=== PATIENT | male | born 1960 | race Caucasian/White ===

== ENCOUNTER 2017-02-26 07:04 | Inpatient (IN) ==
[2017-02-26] MEDS ORDERED: NS 1,000 ML ONE (07:17)
[2017-02-26] MEDS ORDERED: CARDIZEM ONE (07:17)
--- NOTE | 2017-02-26 07:25 | EKG Report ---
Test Performed on : 02/26/2017 07:18:39 AM Test Reason : CHEST PAIN Blood Pressure : / mmHG Vent. Rate : 156 BPM Atrial Rate : 312 BPM P-R Int : 000 ms QRS Dur : 092 ms QT Int : 288 ms P-R-T Axes : -84 053 062 degrees QTc Int : 464 ms Atrial flutter. with 2:[address]. [address] and T wave abnormality Abnormal ECG When compared with ECG of 29-JUL-2016 16:11, Questionable change in QRS axis ST no longer depressed in Inferior leads ST no longer depressed in Anterior leads T wave inversion no longer evident in Inferior leads Unconfirmed Result
--- NOTE | 2017-02-26 07:28 | PROVIDER DOCUMENTATION ---
HPI-Cardiac General - General Chief Complaint: General Adult Stated Complaint: EDEMA/SORES/LESIONS Time Seen by Provider: 02/26/17 07:21 Source: patient Allergies/Adverse Reactions: Patient Allergies Allergy/AdvReac Type Severity Reaction Status Date / Time No Known Allergies Allergy Verified 03/14/13 13:54 Home Medications: Home Medication List Medication Instructions Recorded Confirmed Last Taken Type Aspirin EC 81 mg PO DAILY #90 tablet 07/31/16 02/26/17 Unknown Rx Aspirin EC 81 mg PO DAILY tablet 03/02/17 Unknown Rx Clindamycin [Cleocin] 300 mg PO TID #21 capsule 03/02/17 Unknown Rx Diltiazem [Cardizem] 60 mg PO Q8HR #90 tablet 03/02/17 Unknown Rx Lactobacillus Rhamnosus GG 1 each PO DAILY #1 each 03/02/17 Unknown Rx [Culturelle] Levofloxacin [Levaquin] 500 mg PO DAILY #7 tablet 03/02/17 Unknown Rx - History of Present Illness-Cardiac Nature of Presenting Problem: left leg swollen painful and red 3 or 4 days has hx of sores for years .now cannot bear weight Location: reports: other (palpitations x weeks 2or 3) Quality of Pain: reports: aching, sharp, stabbing Severity in ED: moderate Onset/Duration: 3 days ago Timing: still present, getting worse Context/Activities at Onset: reports: none Modifying Factors: worse with: exercise, movement Palpitation Quality: fast/pounding heart beat History of arrythmia: reports: A-Fib, other (aflutter) Recent use of:: reports: no stimulants Nitro Today/Relief: reports: no nitro taken today Aspirin Treatment Today: reports: 81 mg x 1 Prior Chest Pain/Cardiac Workup: reports: no prior chest pain Associated Symptoms: reports: edema, fever/chills, nausea, rash, shortness of breath, weakness. denies: vomiting Similar Symptoms Previously?: Yes Recently Seen Here or By Another Healthcare Provider: No Review of Systems - Adult - REVIEW OF SYSTEMS - ADULT Constitutional: reports: chills, fever, night sweats Eyes: reports: no symptoms reported Ears, Nose, Mouth & Throat: reports: no symptoms reported Cardiovascular: reports: edema, palpitations. denies: chest pain, syncope Respiratory: reports: chronic cough, shortness of breath Gastrointestinal: reports: diarrhea, nausea. denies: abdominal pain Genitourinary: reports: no symptoms reported Musculoskeletal: reports: bone pain, joint swelling Integumentary: reports: skin sores/ulcer Neurological: reports: numbness. denies: dizziness/vertigo Psychiatric: reports: no symptoms reported Endocrine: reports: increased thirst, polyuria Hematologic/Lymphatic: denies: blood clots, easy bruising, low blood count Allergic/Immunologic: reports: no symptoms reported All Other Systems: Reviewed and Negative Past History - Adult - PAST MEDICAL HISTORY-ADULT Review of Records: reports: Nursing Assessment Review, Medications Reviewed, Social history reviewed & non-contributory. Major Childhood Illnesses: reports: denies history Cardiovascular: reports: A-Fib, HTN. denies: CAD, CHF, [place], PAD Respiratory: reports: COPD Gastrointestinal: reports: denies history Genitourinary: reports: denies history Musculoskeletal: reports: denies history Neurological: reports: denies history Endocrine/Immune: reports: denies history - PRIOR SURGERIES/PROCEDURES Surgical/Procedure History: reports: none - FAMILY HISTORY Family History: diabetes - SOCIAL HISTORY Smoking: cigarettes Substance Use: none/never Alcohol Use Frequency: occasionally Physical Exam-General - PHYSICAL EXAM-ADULT Initial Vital Signs Reviewed: Yes - CONSTITUTIONAL General Appearance: mild distress - EYES Eyes: PERRL/EOMI - HEAD, EARS, NOSE, MOUTH & THROAT HENMT: normocephalic/atraumatic, moist mucous membranes, normal ENT inspection - NECK Neck: full range of motion, supple - RESPIRATORY Respiratory: rhonchi, wheezing, increased rate - CARDIOVASCULAR Cardiovascular: tachycardia - GASTROINTESTINAL (ABDOMEN) Abdominal Exam: soft - LYMPHATIC Lymphatic: no adenopathy, axilla node tender - MUSCULOSKELETAL Back Exam: normal inspection Extremity: erythema, swelling - SKIN Integumentary: normal color, normal turgor - NEUROLOGIC Neurologic: grossly normal - PSYCHIATRIC Psych/Mental Status: oriented x 3 Progress - PLAN OF CARE/RESULTS Progress/Plan/Lab Results: Orders Category Date Time Status Cardiac Monitoring DIRECTED Care 02/26/17 07:14 Completed Saline Loc NOW Care 02/26/17 07:14 Completed CHEST-2 VIEWS [RAD] Stat Exams 02/26/17 07:14 Completed BLOOD CULTURE [BLDCUL] Stat Lab 02/26/17 07:53 Completed CBC WITH ELECTRONIC DIFF [HEME] Stat Lab 02/26/17 07:25 Completed CK PROFILE [SP CHEM] Stat Lab 02/26/17 07:25 Completed COMPREHENSIVE METABOLIC PANEL [CHEM] Stat Lab 02/26/17 07:25 Completed LACTATE, PLASMA [CHEM] Stat Lab 02/26/17 07:25 Completed MAGNESIUM [CHEM] Stat Lab 02/26/17 07:25 Completed PRO B-NATRIURETIC PEPTIDE Stat Lab 02/26/17 07:25 Com[address]IME WITH INR PL [COAG] Stat Lab 02/26/17 07:[address] [COAG] Stat Lab 02/26/17 07:25 Completed TROPONIN T Stat Lab 02/26/17 07:25 Completed 0.9% Sodium Chloride Inj [Ns] 1,000 ml Med 02/26/17 07:17 Discontinued .ROUTE As Directed 0.9% Sodium Chloride Inj [Ns] 1,000 ml Med 02/26/17 07:37 Discontinued IV 999 mls/hr Diltiazem [Cardizem] Med 02/26/17 07:37 Discontinued 15 mg IV NOW ONE Diltiazem [Cardizem] Med 02/26/17 07:17 Discontinued 25 mg .ROUTE .STK-MED ONE EKG [EKG] Stat Ther 02/26/17 07:14 Draft Result Diagrams: 02/28/17 04:52 02/28/17 04:52 - EKG 1 Time of EKG reading by physician:: 07:18 EKG Read and Signed by:: Cong Baca EKG Interpretation (*Must complete 3 of following elements*): Abnormal Rate: 156 Rhythm: atrial flutter with 2:1 AV conduction [place]: normal QRS: normal GA Interval: normal ST Wave: non-specific ST changes Departure - Departure Date of Disposition Decision: 02/26/17 Time of Disposition Decision: 10:00 DIAGNOSIS: Atrial flutter with rapid ventricular response Disposition: ADMITTED INPATIENT 09 Certified Medical Emergency: Emergent Condition: Good - Critical Care Note This patient required my direct & personal management of CC.: No
[2017-02-26] MEDS ORDERED: CARDIZEM IV ONE (07:37)
[2017-02-26] MEDS ORDERED: NS 1,000 ML IV ONE ×2 (07:37→09:42)
[2017-02-26 07:51] LABS: BASO% 0.3 % (0.0-0.8); HEMATOCRIT 49.2 % (42.0-52.0); HEMOGLOBIN 16.4 g/dL (14.0-18.0); IMM GRAN# 0.17 X1000 (0.0-0.04); IMM GRAN% 0.8 % (0.0-0.5); INR 1.16 (0.86-1.15); LYMPH# 1.36 X1000 (1.2-3.4); LYMPH% 6.2 % (20.5-51.1); MANUAL DIFF NEEDED? NO; MCH 30.9 PG (27-31); MCHC 33.3 g/dL (33-37); MCV 92.8 FL (81-99); MONO# 1.59 X1000 (0.11-0.59); MONO% 7.3 % (1.7-9.3); NEUT% 85.4 % (42.2-75.2); PLT 195 X1000 (130-400); PROTIME 15.1 Seconds (12.1-15.5)
[2017-02-26 07:52] LABS: PTT PL 33.2 Seconds (22.6-43.9)
[2017-02-26 07:59] LABS: ALBUMIN 4.1 g/dL (3.5-5.0); CALCIUM 9.2 mg/dL (8.8-10.2); MAGNESIUM 2.4 mg/dL (1.5-2.7); POTASSIUM 3.5 mmol/L (3.5-5.1); TOTAL BILIRUBIN 0.7 mg/dL (0.20-1.00); TOTAL PROTEIN 8.2 g/dL (6.3-8.3)
--- NOTE | 2017-02-26 08:02 | Diag Imaging Result Doc PS360 ---
EXAM: CHEST-2 VIEWS HISTORY: CP TECHNIQUE: 07/29/2016 COMPARISON: None. FINDINGS: The lungs are well expanded. The heart is not enlarged. The vessels are not distended. There are no infiltrates. No pleural effusions. IMPRESSION: No acute abnormality. Electronically signed by Jabier Marin 02/26/2017 7:59 AM
[2017-02-26] MEDS ORDERED: ZOFRAN IV PRN (09:42)
[2017-02-26] MEDS ORDERED: VANCOMYCIN IV PER PHARMACY MISC SCH (09:42)
[2017-02-26] MEDS ORDERED: LOVENOX SUBQ SCH (09:42)
[2017-02-26] MEDS ORDERED: CARDIZEM PO SCH (10:30)
[2017-02-26] MEDS: ASPIRIN EC PO SCH (10:39)
[2017-02-26] MEDS: ZOSYN 3.375 GM/NS 3.375 GM/50 ML IVPB IV SCH ×3 (10:39→21:28)
[2017-02-26] MEDS: NORCO-5 PO PRN ×2 (10:51→16:35)
[2017-02-26] MEDS ORDERED: VANCOMYCIN 1,800 MG in NS 250 ML IV ONE (11:00)
[2017-02-26] MEDS: CARDIZEM 100 MG/NS 100 MG/100 ML IVPB IV SCH (13:13)
--- NOTE | 2017-02-26 13:36 | HISTORY AND PHYSICAL ---
PRIMARY CARE PHYSICIAN: None. LOGGER ALL ROUND: Dr. Magnus Loza. CHIEF COMPLAINT: Left leg wound. HISTORY OF PRESENT ILLNESS: Mr. Tripp is a 56-year-old male who presented to the emergency room wanting to be evaluated for wound to his left leg. On arrival he also was found to be in atrial fibrillation and flutter with rapid ventricular response. He does have a history of this but due to financial restraints has not been able to take his Cardizem and has only been on aspirin as far as chronic anticoagulation. He denies any other symptoms other than and concern over his left leg. He reports that his left leg has had these sores to his legs for the last 4 years but over the last 3-4 days has become more worse and appears to be infected with redness and swelling and mild amount of drainage from wound to his left posterior ankle. He reports some chills and low-grade fever. He denies any additional symptoms. Denies chest pain. He will be admitted for further evaluation and treatment. We will also get a social service consult to try to obtain his medications to be more affordable that he can have compliance on discharge. PAST MEDICAL HISTORY: 1. High blood pressure. 2. Atrial fibrillation. 3. Chronic right shoulder pain. PAST SURGICAL HISTORY: None. ALLERGIES: No known drug allergies. MEDICATIONS: Aspirin 81 mg p.o. daily. Cardizem CD 240 mg daily previously before discontinuation due to affordability. SOCIAL HISTORY: The patient lives with his . He reports smoking a pack and half a day and has done so for about 14 in 15 years. He also admits to drinking 2 beers a day over the last 15 years and has a history of cocaine use and reports he quit about 8 years ago. FAMILY HISTORY: Reviewed and noncontributory. REVIEW OF THE SYSTEM: Ten point review of systems negative other than previously stated in HPI. LABORATORIES AND DIAGNOSTICS: CBC: White count 21.88, hemoglobin and hematocrit 16.4, 49.2, platelets 195,000. PT 15.1, INR 1.16, PTT 33.8. BMP: Sodium 133, potassium 3.5, chloride 95, CO2 25, BUN 20, creatinine 1.3, glucose 172. LFTs within normal limits. Initial cardiac enzymes negative. ProBNP 257. Chest x-ray no acute abnormality. PHYSICAL EXAMINATION: VITAL SIGNS: Temperature 98.5 degrees, pulse 113, respirations 23, blood pressure 113/77, O2 saturation 97% on 2 L per nasal cannula. HEENT: Normocephalic, atraumatic. Mucous membranes moist. NECK: Supple. No JVD. CHEST: Bilateral breath sounds clear. No accessory muscle use noted. Respirations unlabored. CARDIOVASCULAR: Irregular rhythm. Tachycardic rate. ABDOMEN: Abdomen is soft, nontender, nondistended. Positive bowel sounds. EXTREMITIES: Left lower extremity with multiple sores WITH mild surrounding erythema. There is an ulceration to the left posterior lower leg that is more moderate erythema. No fluctuance or abscess noted. Does have a mild amount of drainage. NEUROLOGIC: Patient is alert and oriented x4. No neurological deficits noted. ASSESSMENT AND PLAN: 1. Atrial flutter, atrial fibrillation. Will place back on Cardizem and anticoagulation. Will also speak with social welfare research worker to check about the status of medications to ensure compliance on discharge. Also we will check a TSH and a mag just also to find another etiology regarding his atrial flutter, atrial fibrillation as well as cardiac enzymes. 2. Cellulitis left lower leg. Will treat with vancomycin and Zosyn and continue to follow his white count. We will get a wound culture as well. 3. Acute kidney injury. We will hydrate. He is slightly hyponatremic and with his alcohol history we will go ahead and treat with IV fluids. 4. High blood pressure. We will continue to follow and treat accordingly. 5. Hyperglycemia. We will check hemoglobin A1c in regards to this. 6. Nicotine dependence. Counseled on smoking cessation. Further orders pending physician evaluation. Dictated by ERICK Yancey for Suresh Lopez MD cc: ERICK Yancey MD
[2017-02-26] MEDS: MORPHINE IV PRN (21:27)
[2017-02-26] MEDS: VANCOMYCIN 1,300 MG in NS 250 ML IV SCH (22:28)
[2017-02-27] MEDS: MORPHINE IV PRN (01:11)
[2017-02-27] MEDS ORDERED: TYLENOL PO ONE (01:16)
[2017-02-27] MEDS: CARDIZEM 100 MG/NS 100 MG/100 ML IVPB IV SCH (02:14)
[2017-02-27] MEDS: ZOSYN 3.375 GM/NS 3.375 GM/50 ML IVPB IV SCH ×4 (03:43→22:02)
[2017-02-27 06:25] LABS: MANUAL DIFF NEEDED? NO
[2017-02-27 06:41] LABS: HEMOGLOBIN A1C 5.9 % (4.8-6.0)
[2017-02-27 06:43] LABS: BASO% 0.3 % (0.0-0.8); EOS# 0.19 X1000 (0.0-0.7); EOS% 1.3 % (0.0-10.0); HEMATOCRIT 41.2 % (42.0-52.0); HEMOGLOBIN 13.4 g/dL (14.0-18.0); IMM GRAN# 0.07 X1000 (0.0-0.04); IMM GRAN% 0.5 % (0.0-0.5); LYMPH# 1.17 X1000 (1.2-3.4); LYMPH% 8.3 % (20.5-51.1); MCH 30.7 PG (27-31); MCHC 32.5 g/dL (33-37); MCV 94.5 FL (81-99); MONO# 1.12 X1000 (0.11-0.59); MONO% 7.9 % (1.7-9.3); MPV 12.2 FL (7.4-10.4); NEUT% 81.7 % (42.2-75.2); PLT 165 X1000 (130-400); RBC 4.36 XMIL (4.7-6.1)
[2017-02-27 07:01] LABS: AGAP 14; BUN 19 mg/dL (8-22); CALCIUM 8.5 mg/dL (8.8-10.2); CHLORIDE 102 mmol/L (98-107); COSMO 278; MAGNESIUM 2.4 mg/dL (1.5-2.7); POTASSIUM 3.8 mmol/L (3.5-5.1); SODIUM 138 mmol/L (136-145); TCO2 22 mmol/L (25-35)
--- NOTE | 2017-02-27 08:34 | PROGRESS NOTE ---
DATE: 02/27/2017 SUBJECTIVE: This patient feels much better. He is still complaining of left lower extremity pain secondary to cellulitis but compared with the admission, is better. He denies nausea, vomiting. No diarrhea, no constipation. No chest pain. No shortness of breath. Since this patient is in the ICU with atrial flutter and diltiazem drip, cardiology department has been consulted. Pending recommendations. OBJECTIVE: Vital Signs: Temperature 98.3 degrees, pulse 86, respiratory rate 21, blood pressure 101/60, oxygen saturation 97% on 2 L of nasal cannula. HEENT: Head normocephalic. No trauma. PERRLA. Neck: Supple. No JVD. No masses. Central trachea. Chest: Clear to auscultation. No wheezing. No rales. Cardiovascular: Irregular rate and rhythm. Abdomen: Soft, nontender, nondistended. No hepatosplenomegaly. Extremities: Left lower extremity with multiple sores with surrounding erythema. There is an ulceration to the left posterior lower leg that is more moderate, that had more clear erythema. I do not think there is an abscess. Pulses are present. Neurological Examination: The patient is alert and oriented x3. No focal neurological deficits. Laboratory: WBC 14.1, hemoglobin 13.4, hematocrit 41.2, platelets 165,000. Sodium 138, potassium 3.8, chloride 102, bicarbonate 22, BUN 19, creatinine 0.9, glucose 94, calcium 8.5, magnesium 2.4. TSH 1.5. Troponins negative x3. ASSESSMENT AND PLAN: 1. Atrial flutter. This patient is on a diltiazem drip and also anticoagulation. Cardiology department has been consulted. This patient is not complaining of shortness of breath or chest pain. We will continue to monitor. 2. Cellulitis, left lower leg. Continue with vancomycin and Zosyn. WBC is getting better. We will continue to monitor. 3. Acute kidney injury, resolved. 4. Hypertension. We will continue to follow and treat accordingly. 5. Hyperglycemia. We checked his hemoglobin A1c and it is 5.9. Today's glucose is normal. 6. Nicotine dependence. This patient has been highly advised against tobacco abuse. I will continue with daily cessation education. CRITICAL CARE TIME: 35 minutes. cc: Suresh Lopez MD
[2017-02-27] MEDS: ASPIRIN EC PO SCH (08:35)
[2017-02-27] MEDS: LOVENOX SUBQ SCH ×2 (08:35→20:05)
[2017-02-27] MEDS: NORCO-5 PO PRN ×3 (08:36→22:30)
[2017-02-27] MEDS ORDERED: CARDIZEM CD PO SCH (09:00)
[2017-02-27] MEDS: VANCOMYCIN 1,300 MG in NS 250 ML IV SCH ×2 (11:25→22:02)
[2017-02-27] MEDS: CARDIZEM PO SCH ×2 (13:34→20:05)
--- NOTE | 2017-02-27 18:50 | CONSULTATION ---
DATE OF CONSULTATION: 02/27/2017 IMPRESSION: 1. Atrial flutter recurrent and persistent. Patient asymptomatic from a cardiovascular standpoint. 2. Hypertension. 3. Patient currently admitted for left lower extremity cellulitis. 4. Chronic cigarette use. 5. Medical noncompliance. RECOMMENDATIONS: 1. Transition to oral Cardizem. 2. Although patient's CHADS2-VASc score is 1, anticoagulation is problematic given patient's poor medical compliance and lack of resources. The patient was advised that we could start anticoagulation and try and obtain Xarelto or Eliquis through the company's assistance programs. Is not clear whether he will follow up in our office due to his lack of insurance. The patient also advised that ablation would likely be very beneficial but he has limited resources to pursue this. Therefore would utilize anti-platelet therapy with aspirin daily. 3. Repeat echocardiography. HISTORY: This 56-year-old white male with past history of atrial flutter, hypertension, chronic cigarette use and medical noncompliance was admitted to the emergency room for management of left lower extremity cellulitis. He has had left lower extremity swelling and erythema with pain for several days. He was found to be in atrial flutter with increased ventricular rate response and was started on intravenous Cardizem for rate control. Cardiology is consulted. The patient has history of atrial flutter dating back at least 2 years. He recalls having to go to [place] for possible cardioversion and then on arrival for this he was found to be back in sinus rhythm. However since then he has had recurrence of atrial flutter and was hospitalized in [place] in July 2016 with atrial flutter. He was seen by Dr. Loza and was treated with oral Cardizem and aspirin. He has not followed up from a cardiology standpoint and stopped taking his diltiazem for financial reasons. He has not any chest pain. He has some mild exertional dyspnea on a chronic basis. PAST MEDICAL HISTORY: 1. Hypertension. 2. Recurrent and persistent atrial flutter. PAST SURGICAL HISTORY: None. ALLERGIES: Has no known drug allergies. MEDICATIONS: Prior to admission as listed. It is noteworthy is not taking diltiazem previously prescribed for rate control. SOCIAL HISTORY: He is and lives with his . 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 He does not have any health insurance through his work. He smokes a pack and half cigarettes per day. He drinks 1 or 2 beers daily. FAMILY HISTORY: Negative for premature coronary disease. REVIEW OF SYSTEMS: Pulmonary: Negative/noncontributory beyond history present illness. Gastrointestinal: Negative. Constitutional: Negative. Remainder review of systems negative/noncontributory beyond history present illness. PHYSICAL EXAMINATION: General: Reveals an overweight middle-aged male in no distress. Vital Signs: As recorded are stable. HEENT: Extraocular movements intact. Mucous membranes are moist. Dentition is in poor repair. Neck: Supple without jugular venous distention. There are no carotid bruits. Chest: Clear to auscultation. Cardiac Exam: Reveals a regular rate and rhythm without appreciable murmur or gallop. Abdomen: Soft, nontender. Extremities: Demonstrate mild edema left lower extremity with erythema consistent with cellulitis. There are several excoriations on both lower extremities with scabs. Neurologic Exam: Reveals him to be alert and fully oriented. Speech is fluent. Moves all 4 extremities equally well. DATA: Twelve lead EKG demonstrates atrial flutter with 2:1 AV conduction and nonspecific ST and T- wave abnormality. cc: Benny Last MD
--- NOTE | 2017-02-27 21:29 | ECHO REPORT ---
ORDER DATE: 02/27/2017 MEASUREMENTS: Left ventricular end-diastolic diameter 4.7, systolic diameter 3.4, septal thickness 1.1, posterior wall thickness 1.1, left atrium 4.3, aortic root 3.0. SUMMARY: 1. Adequate quality study. 2. Aortic valve is trileaflet. There is mild sclerosis at the tip of the noncoronary cusp. Aortic valve opening is normal. Peak gradient across aortic valve is less than 10 mmHg. Mitral, tricuspid, and pulmonic valves are without structural abnormality with trace mitral regurgitation and mild tricuspid regurgitation. Estimated systolic PA pressure by Doppler is 35 mmHg. The aortic root is normal size. 3. Normal left ventricular dimensions demonstrated. Estimated left ejection fraction appears to be at least 60%. No regional wall motion abnormalities are demonstrated. Left atrium and right atrium are mildly enlarged. Right ventricle is normal in size with normal right ventricular systolic function. 4. No pericardial effusion. 5. Appearance of inferior vena cava suggests normal central venous pressure. 6. Intravenous agitated saline contrast study performed reveals no evidence of interatrial shunting. 7. Appearance of inferior vena cava suggests normal central venous pressure. cc: Benny Last MD
[2017-02-28] MEDS: ZOSYN 3.375 GM/NS 3.375 GM/50 ML IVPB IV SCH ×3 (04:19→16:48)
[2017-02-28] MEDS: CARDIZEM PO SCH ×3 (04:19→20:53)
[2017-02-28 06:58] LABS: BASO% 0.5 % (0.0-0.8); EOS# 0.32 X1000 (0.0-0.7); EOS% 3.3 % (0.0-10.0); HEMATOCRIT 40.5 % (42.0-52.0); HEMOGLOBIN 13.1 g/dL (14.0-18.0); IMM GRAN# 0.04 X1000 (0.0-0.04); IMM GRAN% 0.4 % (0.0-0.5); LYMPH# 1.47 X1000 (1.2-3.4); MANUAL DIFF NEEDED? YES; MCH 30.4 PG (27-31); MCHC 32.3 g/dL (33-37); MONO# 0.74 X1000 (0.11-0.59); MONO% 7.5 % (1.7-9.3); NEUT% 73.3 % (42.2-75.2); PLT 197 X1000 (130-400); RBC 4.31 XMIL (4.7-6.1)
[2017-02-28 07:50] LABS: AGAP 13; BUN 17 mg/dL (8-22); CALCIUM 8.5 mg/dL (8.8-10.2); CHLORIDE 102 mmol/L (98-107); COSMO 275; POTASSIUM 3.7 mmol/L (3.5-5.1); SODIUM 137 mmol/L (136-145); TCO2 22 mmol/L (25-35)
[2017-02-28] MEDS: LOVENOX SUBQ SCH ×2 (08:06→19:19)
[2017-02-28] MEDS: ASPIRIN EC PO SCH (08:06)
[2017-02-28] MEDS: NORCO-5 PO PRN ×2 (08:17→16:58)
[2017-02-28 08:31] LABS: EOS 5 % (1-10); LYMPHS 9 % (21-51); MONO 3 % (1-9)
--- NOTE | 2017-02-28 10:49 | EKG Report ---
Test Performed on : 02/28/2017 10:39:05 AM Test Reason : Chest Pain Blood Pressure : / mmHG Vent. Rate : 113 BPM Atrial Rate : 315 BPM P-R Int : 000 ms QRS Dur : 094 ms QT Int : 318 ms P-R-T Axes : 000 056 053 degrees QTc Int : 436 ms Atrial flutter. with variable AV block. ST elevation, consider inferior injury or acute infarct ACUTE AR / STEMI Abnormal ECG When compared with ECG of 26-FEB-2017 07:18, (Unconfirmed) ST elevation now present in Inferior leads ST no longer depressed in Lateral leads Unconfirmed Result
[2017-02-28] MEDS ORDERED: VANCOMYCIN 1,300 MG in NS 250 ML IV SCH (11:00)
[2017-02-28] MEDS ORDERED: TORADOL IV ONE ×2 (11:04→11:15)
--- NOTE | 2017-02-28 11:50 | PROGRESS NOTE ---
DATE: 02/28/2017 SUBJECTIVE: The patient states that he is feeling better overall. Left lower extremity pain is still present but it has decreased. The patient did have an episode of chest pain that was low midsternal to epigastric. It was present on inspiration only with no accompanying symptoms. OBJECTIVE: Vital Signs: Blood pressure is 114/76, with a heart rate of 105, respirations are 20, temperature is 98.9 degrees, with room air saturations of 98-99. Cardiovascular: Irregularly irregular rate and rhythm. S1 and S2 are appreciated. Pulmonary: Breath sounds are clear with no increased work of breathing noted. Gastrointestinal: Abdomen is soft, nontender, nondistended. Bowel sounds in all 4 quadrants. Extremities: Left lower extremity has multiple sores with surrounding erythema but the patient states that this is much better than yesterday. Pulses are palpable x4. Neurologic: He is alert and oriented x3. Labs: WBC is 9.8, with a hemoglobin of 13.1, hematocrit 40.5, and platelets of 197,000. Sodium is 137, potassium 3.7, BUN 17, creatinine 0.7, with a glucose of 83. His troponins were negative on multiple occasions. ASSESSMENT AND PLAN: 1. Atrial flutter. Rate remains 90-105. Patient does not complain of shortness of breath, paroxysmal nocturnal dyspnea, or orthopnea. We will continue with oral Cardizem and follow along with cardiology. 2. Chest pain. This is more atypical in nature. This is at the lower sternum to epigastric area. It is present on deep breathing, movement, and coughing. When the patient is sitting still and not breathing, the pain does subside. He denies chest pressure or shortness of breath. I did discuss this with Dr. Webster who recommends treating the pain medically. We will give a 1 time dose of Toradol and see what the effect is. We will also get a troponin. 3. Cellulitis, left lower leg. We will continue vancomycin and Zosyn. 4. Acute kidney injury, resolved. 5. Hypertension. We are going to continue his treatment regimen. 6. Hyperglycemia. Today's glucose is normal. 7. Nicotine dependence. Aware. Dictated by ERICK Schultz for Jese Rebollar MD cc: Jessica J. ERICK Mota MD
[2017-02-28] MEDS: VANCOMYCIN 1,600 MG in NS 250 ML IV SCH ×2 (12:12→23:05)
[2017-02-28] MEDS ORDERED: TORADOL IV SCH (18:00)
[2017-02-28] MEDS: LEVAQUIN PO SCH (18:19)
[2017-02-28] MEDS: TORADOL IV SCH ×2 (18:19→23:04)
[2017-03-01] MEDS: CARDIZEM PO SCH ×3 (04:08→20:34)
[2017-03-01] MEDS: TORADOL IV SCH ×2 (05:06→12:19)
[2017-03-01] MEDS: LOVENOX SUBQ SCH ×2 (08:23→19:16)
[2017-03-01] MEDS: LEVAQUIN PO SCH (08:29)
[2017-03-01] MEDS: CLEOCIN PO SCH ×3 (08:29→16:54)
[2017-03-01] MEDS: NORCO-5 PO PRN ×4 (08:30→21:41)
[2017-03-01] MEDS: ASPIRIN EC PO SCH (08:30)
--- NOTE | 2017-03-01 10:51 | PROGRESS NOTE ---
DATE: 03/01/2017 SUBJECTIVE: The patient without any complaints. Does note the last time he had episode of heart fluttering, but it went away pretty quickly. Currently states that he is feeling better. He had some chest pain yesterday that was more so chest wall pain, was easily relieved with Toradol and thus the chest pain is gone. States the swelling in his left lower extremity is much improved and the redness is much improved. OBJECTIVE: Vital Signs: On physical, temp 98, pulse 104, respiratory rate 18, BP 120/79, satting 97% on room air. General: Patient is awake, alert. He is currently in no respiratory distress, pleasant to talk with. Neck: Supple. CV: Regular rate. No appreciable murmurs. Chest: Clear. Abdomen: Soft. Extremities: Moves all extremities. Neurologic: No focal changes. Skin: He is noted to have multiple sores on his left lower extremity that actually appear better than yesterday's exam. They are starting to dry up more. The overall erythema of the left lower extremity also is improving. LABS: WBC is 9. ASSESSMENT: 1. Atrial flutter. His heart rate remains 90-105. He is on Cardizem oral three times a day. We will attempt to find out from pharmacy the difference in cost between generic Cardizem and Cardizem CD. 2. Chest wall pain, resolved with Toradol. 3. Cellulitis of left lower extremity. He is currently on vancomycin and Levaquin and continued to improve. At this point, he is growing Streptococcus pyogenes, which is highly sensitive to Levaquin and methicillin-resistant Staphylococcus aureus, which is highly sensitive to clindamycin. We will ask lab if Streptococcus pyogenes is also sensitive to clindamycin. PLAN: Hopefully home in the a.m. Further orders as needed. cc: Jese Rebollar MD
[2017-03-02] MEDS: NORCO-5 PO PRN ×2 (03:51→08:39)
[2017-03-02] MEDS: CARDIZEM PO SCH ×2 (03:51→04:08)
[2017-03-02] MEDS: CLEOCIN PO SCH (08:39)
[2017-03-02] MEDS: ASPIRIN EC PO SCH (08:39)
[2017-03-02] MEDS: LEVAQUIN PO SCH (08:39)
[2017-03-02] MEDS: LOVENOX SUBQ SCH (08:40)
[2017-03-02 11:01] VITALS: BP 112/85
--- NOTE | 2017-03-02 21:50 | DISCHARGE SUMMARY ---
ADMISSION DATE: 02/26/2017 DISCHARGE DATE: 03/02/2017 NO DICTATION Dictated by ERICK Schultz for Jese Rebollar MD cc: ERICK Schultz MD
== END 2017-03-02 11:46 | disposition home or self-care (01) ==
LOC: P.ED 07:04 → P.MEDSURG 07:04 → OBSVTOIN 09:08 → SUATTDRO 09:08 → P.ICU 12:19 → P.MEDSURG 02-27 18:18
PROVIDERS: ATTEND Family Medicine

== ENCOUNTER 2017-03-14 00:28 | Inpatient (IN) ==
--- NOTE | 2017-03-14 00:56 | EKG Report ---
Test Performed on : 03/14/2017 00:44:22 AM Test Reason : pain Blood Pressure : / mmHG Vent. Rate : 144 BPM Atrial Rate : 144 BPM P-R Int : 080 ms QRS Dur : 070 ms QT Int : 294 ms P-R-T Axes : 053 052 -14 degrees QTc Int : 455 ms Sinus tachycardia. with short MA Low voltage QRS Nonspecific ST abnormality Abnormal QRS-T angle, consider primary T wave abnormality Abnormal ECG When compared with ECG of 14-MAR-2017 00:42, (Unconfirmed) Sinus rhythm. has replaced Atrial flutter. ST elevation now present in Inferior leads Unconfirmed Result
[2017-03-14] MEDS ORDERED: LANOXIN IV ONE (01:13)
[2017-03-14 02:10] LABS: ALBUMIN 3.3 g/dL (3.5-5.0); CALCIUM 8.9 mg/dL (8.8-10.2); POTASSIUM 4.5 mmol/L (3.5-5.1); TOTAL PROTEIN 7.2 g/dL (6.3-8.3)
[2017-03-14] MEDS ORDERED: CARDIZEM 100 MG/NS 100 MG/100 ML IVPB IV SCH (02:43)
[2017-03-14 02:46] LABS: MANUAL DIFF NEEDED? NO
--- NOTE | 2017-03-14 02:48 | EKG Report ---
Test Performed on : 03/14/2017 02:40:43 AM Test Reason : repeat, cp Blood Pressure : / mmHG Vent. Rate : 125 BPM Atrial Rate : 125 BPM P-R Int : 000 ms QRS Dur : 090 ms QT Int : 292 ms P-R-T Axes : 000 040 015 degrees QTc Int : 421 ms Accelerated Junctional rhythm. with premature supraventricular complexes. Low voltage QRS Abnormal ECG When compared with ECG of 14-MAR-2017 00:44, (Unconfirmed) Junctional rhythm. has replaced Sinus rhythm. Questionable change in QRS duration Unconfirmed Result
--- NOTE | 2017-03-14 02:49 | PROVIDER DOCUMENTATION ---
This chart was entered by Dalia Eaton Scribe, acting as scribe for Dion Juarez MD. HPI-Chest Pain - General Chief Complaint: Chest Pain Stated Complaint: CHEST PAIN Time Seen by Provider: 03/14/17 00:34 Source: patient Allergies/Adverse Reactions: Patient Allergies Allergy/AdvReac Type Severity Reaction Status Date / Time No Known Allergies Allergy Verified 03/14/17 00:42 Home Medications: Home Medication List Medication Instructions Recorded Confirmed Last Taken Type Aspirin EC 81 mg PO DAILY tablet 03/02/17 03/14/17 03/13/17 Rx Diltiazem [Cardizem] 60 mg PO Q8HR #90 tablet 03/02/17 03/14/17 Unknown Rx Lactobacillus Rhamnosus GG 1 each PO DAILY #1 each 03/02/17 03/14/17 Unknown Rx [Culturelle] Levofloxacin [Levaquin] 500 mg PO DAILY #7 tablet 03/02/17 03/14/17 03/13/17 Rx - History of Present Illness-CP Nature of Presenting Problem: Pt is a 56 year old male who came to the ED with a cc of chest pain that started this morning before work. pt reports that he has been sweating with the chest pain. pt reports after work he went to lay down at home. pt reports that the pain didn't ease up so he came to the ED. Location: reports: central Chest Pain Radiation: reports: no radiation Quality of Pain: reports: sharp Severity in ED: mild Onset/Duration: this morning Timing: still present Context/Activities at Onset: reports: none Modifying Factors: improves with: nothing Associated Symptoms: reports: shortness of breath Nitro Today/Relief: no nitro taken today Aspirin Treatment Today: no aspirin today Prior Chest Pain/Cardiac Workup: reports: no prior chest pain Similar Symptoms Previously?: No Recently Seen Here or By Another Healthcare Provider: No Review of Systems - Adult - REVIEW OF SYSTEMS - ADULT Constitutional: denies: chills, fever Eyes: reports: no symptoms reported Ears, Nose, Mouth & Throat: reports: no symptoms reported Cardiovascular: reports: chest pain. denies: heart murmur, orthopnea Respiratory: reports: shortness of breath. denies: cough, pleurisy, wheezing Gastrointestinal: denies: diarrhea, nausea, vomiting Genitourinary: reports: no symptoms reported Musculoskeletal: reports: no symptoms reported Integumentary: reports: no symptoms reported Neurological: reports: no symptoms reported Psychiatric: reports: no symptoms reported Endocrine: reports: no symptoms reported Hematologic/Lymphatic: reports: no symptoms reported Allergic/Immunologic: reports: no symptoms reported All Other Systems: Reviewed and Negative Past History - Adult - PAST MEDICAL HISTORY-ADULT Review of Records: reports: Old Records Reviewed, Nursing Assessment Review, Medications Reviewed, Social history reviewed & non-contributory. Major Childhood Illnesses: reports: denies history Cardiovascular: reports: A-Fib, HTN. denies: CAD, CHF, LA, PAD Respiratory: reports: COPD Gastrointestinal: reports: denies history Obstetrical/Gynecological: reports: denies history Genitourinary: reports: denies history Musculoskeletal: reports: denies history Neurological: reports: denies history Endocrine/Immune: reports: denies history Other Conditions: reports: denies history - PRIOR SURGERIES/PROCEDURES Surgical/Procedure History: reports: none - FAMILY HISTORY Family History: diabetes Physical Exam-General - PHYSICAL EXAM-ADULT Initial Vital Signs Reviewed: Yes - CONSTITUTIONAL General Appearance: alert, mild distress - EYES Eyes: PERRL/EOMI, pink conjunctivae - HEAD, EARS, NOSE, MOUTH & THROAT HENMT: normocephalic/atraumatic, moist mucous membranes - NECK Neck: non-tender, full range of motion, supple - RESPIRATORY Respiratory: chest non-tender, lungs clear, normal breath sounds - CARDIOVASCULAR Cardiovascular: normal peripheral pulses, regular rate, rhythm - GASTROINTESTINAL (ABDOMEN) Abdominal Exam: normal bowel sounds, non tender, soft, no organomegaly - MUSCULOSKELETAL Back Exam: normal inspection, no CVA tenderness Extremity: normal range of motion, non-tender, normal gait - SKIN Integumentary: normal color, diaphoresis - NEUROLOGIC Neurologic: grossly normal - PSYCHIATRIC Psych/Mental Status: normal mood/affect, normal thought content, normal thought process, oriented x 3 Progress - PLAN OF CARE/RESULTS Progress/Plan/Lab Results: Vital Signs - 8 hr 03/14/17 00:31 03/14/17 00:44 03/14/17 01:19 Temperature 98.1 F Pulse Rate 144 H 144 H 143 H Respiratory Rate 22 20 22 Blood Pressure 122/83 109/97 108/82 O2 Sat by Pulse Oximetry 95 95 98 03/14/17 01:21 03/14/17 01:27 03/14/17 01:38 Temperature Pulse Rate 143 H 143 H 127 H Respiratory Rate 20 24 Blood Pressure 123/66 119/97 O2 Sat by Pulse Oximetry 97 97 03/14/17 01:56 03/14/17 02:11 03/14/17 02:32 Temperature Pulse Rate 140 H 127 H 118 H Respiratory Rate 19 23 24 Blood Pressure 118/89 118/87 113/72 O2 Sat by Pulse Oximetry 98 96 97 Laboratory Results - last 24 hr 03/14/17 03/14/17 03/14/17 00:34 00:34 00:34 Sodium 130 L Potassium 4.5 Chloride 96 L Carbon Dioxide 24 L Anion Gap 9 BUN 17 Creatinine 1.5 H Estimated GFR/1.73 m2 49 BUN/Creatinine Ratio 11 Glucose 135 H Calculated Osmolality 264 Calcium 8.9 Total Bilirubin 1.00 AST 214 H ALT 167 H Alkaline Phosphatase 91 Creatine Kinase 98 Troponin T < 0.010 [id number] Pept 556 H Total Protein 7.2 Albumin 3.3 L Globulin 4.0 Albumin/Globulin Ratio 1.0 Orders Category Date Time Status CHEST-2 VIEWS [RAD] Stat Exams 03/14/17 00:39 Taken BNP [PRO B-NATRIURETIC PEPTIDE] Stat Lab 03/14/17 00:34 Completed CBC WITH DIFF [HEME] Stat Lab 03/14/17 00:34 Results CK PROFILE [SP CHEM] Stat Lab 03/14/17 00:34 Completed CK PROFILE [SP CHEM] Stat Lab 03/14/17 02:33 Ordered COMPREHENSIVE METABOLIC PANEL [CHEM] Stat Lab 03/14/17 00:34 Completed MAGNESIUM [CHEM] Stat Lab 03/14/17 00:34 Received TROPONIN T Stat Lab 03/14/17 00:34 Completed TROPONIN T Stat Lab 03/14/17 02:33 Ordered Digoxin [Lanoxin] Med 03/14/17 01:13 Discontinued 250 microgm IV NOW ONE Diltiazem 100 mg/Ns [Cardizem 100 mg/Ns] Med 03/14/17 02:43 Ordered 100 mg in 100 ml IV 2.5 mg/hr EKG [EKG] Stat Ther 03/14/17 00:39 Draft EKG [EKG] Stat Ther 03/14/17 02:33 Ordered Transfer/Admit Order [TRANSFER] Routine Transfer 03/14/17 02:41 Ordered Result Diagrams: 03/14/17 00:34 03/14/17 00:34 - EKG 1 Time of EKG reading by physician:: 00:44 EKG Read and Signed by:: Dion Juarez EKG Interpretation (*Must complete 3 of following elements*): Abnormal Rate: 144 (low voltage QRS; nonspecific ST abnormality; abnormal QRS-T andgle consider primary T wave abnormality ) Rhythm: sinus tachycardia w short NH Departure - Departure Date of Disposition Decision: 03/14/17 Time of Disposition Decision: 02:47 DIAGNOSIS: Dysrhythmia, cardiac Qualifiers: Arrhythmia type: atrial flutter Atrial flutter type: atypical Qualified Code(s) : I48.4 - Atypical atrial flutter CHF (congestive heart failure), NYHA class I Qualifiers: Congestive heart failure type: combined Congestive heart failure chronicity: acute on chronic Qualified Code(s): I50.43 - Acute on chronic combined systolic (congestive) and diastolic (congestive) heart failure Disposition: ADMITTED INPATIENT 09 Certified Medical Emergency: Emergent Condition: Fair Referrals and Follow-Ups: None,PCP [Primary Care Provider] - - Critical Care Note This patient required my direct & personal management of CC.: No This chart was documented by the indicated scribe, (Dalia Eaton Scribe) and accurately reflects the services I performed and decisions made by me, Dion Juarez MD, as attested by the provider's signature.
[2017-03-14 02:52] LABS: BASO% 0.4 % (0.0-0.8); HEMATOCRIT 37.8 % (42.0-52.0); HEMOGLOBIN 12.2 g/dL (14.0-18.0); IMM GRAN# 0.05 X1000 (0.0-0.04); IMM GRAN% 0.3 % (0.0-0.5); LYMPH# 2.54 X1000 (1.2-3.4); LYMPH% 14.3 % (20.5-51.1); MCH 29.8 PG (27-31); MCHC 32.3 g/dL (33-37); MCV 92.4 FL (81-99); MONO# 1.73 X1000 (0.11-0.59); MONO% 9.8 % (1.7-9.3); MPV 11.4 FL (7.4-10.4); NEUT% 75.2 % (42.2-75.2); PLT 378 X1000 (130-400); RBC 4.09 XMIL (4.7-6.1)
[2017-03-14] MEDS ORDERED: ZOFRAN IV PRN (04:40)
[2017-03-14] MEDS ORDERED: TYLENOL PO PRN (04:40)
[2017-03-14] MEDS ORDERED: DILAUDID IV ONE (05:56)
[2017-03-14] MEDS ORDERED: CLINDAMYCIN 600 MG/NS 600 MG/50 ML IVPB IV SCH (06:30)
[2017-03-14 06:34] LABS: AMYLASE 21 U/L (20-200); LIPASE 13 U/L (13-60)
[2017-03-14] MEDS ORDERED: VANCOMYCIN IV PER PHARMACY MISC SCH (07:00)
--- NOTE | 2017-03-14 07:08 | HISTORY AND PHYSICAL ---
CHIEF COMPLAINT: Right-sided chest pain, shortness of breath. HISTORY OF PRESENT ILLNESS: Mr. Tripp is a 56-year-old, man who was last admitted by our service on 02/26/2017 for a wound to his left leg and was found to be in atrial fibrillation. He was apparently poorly compliant with his Cardizem related to cost. He has had complaint of right shoulder pain. His presenting complaint today was shortness of breath at work, feeling weak, and having right-sided chest pain. Laboratory data showed an elevated white blood cell count of 17.72 in the emergency room. Chest x-ray showed chronic COPD changes, mild cardiomegaly. Sodium was found to be 130. The patient admittedly drinks 1-2 beers daily. His liver function tests were elevated at AST 214, ALT 167. An EKG was obtained which showed atrial fibrillation with a rate in the 140s. He was dispositioned to the ICU at [facility] for further evaluation and treatment. PAST MEDICAL HISTORY: 1. Hypertension. 2. Atrial fibrillation. 3. Chronic right shoulder pain. 4. Left lower extremity cellulitis. PREVIOUS SURGICAL HISTORY: None. ALLERGIES: No known drug allergies. SOCIAL HISTORY: Lives with his . He is a pack and a half per day smoker but states that he has cut back since his last admission. Has smoked for 15 or so years. Drinks 1 -2 beers daily and has for the last 15 or so years. Has a history of cocaine use but quit roughly 8 years ago. FAMILY HISTORY: Father had diabetes mellitus, was a heavy drinker. HOME MEDICATIONS: 1. Cardizem 60 mg p.o. q.8 hours. 2. Levaquin 500 mg p.o. daily. 3. Aspirin 81 mg p.o. daily. 4. Culturelle 1 p.o. daily. REVIEW OF SYSTEMS: Fourteen point review of systems conducted with the patient. Pertinent positives listed above in the HPI. All other systems reviewed and found to be negative. PHYSICAL EXAMINATION: VITAL SIGNS: Temperature 98.2 degrees, pulse 120, respirations 22, blood pressure 115/80, oxygen saturation 95% on 2 L nasal cannula. GENERAL: Chronically ill-appearing, 56-year-old male. Looks older than stated age. Lying in the ICU bed in no acute distress. HEENT: Head is atraumatic and normocephalic. Pupils equal, round, and reactive to light. Extraocular eye movement intact. Sclerae are anicteric. Conjunctivae are pale. Oral mucosa is dry. Poor dentition noted. NECK: Supple. No JVD. No thyromegaly. Trachea is midline. No cervical lymphadenopathy. CARDIAC: Irregularly irregular. No murmurs, gallops, rubs. LUNGS: Clear to auscultation bilaterally. No rhonchi, wheezes, or rales. Symmetrical rise and fall with respirations. CHEST WALL: Nontender to palpation. ABDOMEN: Soft, nondistended, nontender. Bowel sounds present in all 4 quadrants, normoactive. No pulsatile mass. No organomegaly. EXTREMITIES: No clubbing, cyanosis, or edema. There are 2+ pedal pulses. Left lower extremity has a large scab with mild erythema surrounding at the left posterior portion of the leg. No drainage was noted. NEUROLOGICAL: Patient is alert and oriented x3. Cranial nerves 2-12 grossly intact. DIAGNOSTIC DATA: Chest x-ray shows chronic COPD changes, mild cardiomegaly. WBC 17.72, hemoglobin 12.2, hematocrit 37.8, platelet count 378,000. Sodium 130, potassium 4.5, chloride 96, carbon dioxide 24, BUN 17, creatinine 1.5, glucose 135. AST 214, ALT 167. Amylase and lipase are pending. CK and troponin within normal limits. ASSESSMENT AND PLAN: 1. Atrial fibrillation with a rapid ventricular rate. Cardizem was started in the emergency room at [place]. Patient was transferred to [facility]. We will titrate Cardizem. Consult cardiology. Trend cardiac enzymes. He recently had echocardiogram which showed no wall motion abnormality, intact ejection fraction. He was given digoxin in the emergency room at 250 mcg. Patient does not appear to have any chronic anticoagulation related to his atrial fibrillation. We will give Lovenox 40 mg subcutaneously at this time for venous thromboembolism prophylaxis but patient may need long-term anticoagulation related to his atrial fibrillation. 2. Right-sided chest pain. This did not radiate. The patient did have complaint of shortness of breath with this. We will trend cardiac enzymes. We will also check an ultrasound of the right upper quadrant as he was noted to have elevated liver function tests. 3. Transaminitis. See #2. This could also be related to his chronic alcohol use. 4. Hyponatremia. This could be related to beer potomania. We will check a urine sodium and serum osmolality. We will give normal saline at 125 mL an hour. Hopeful that this will resolve. 5. Acute kidney injury. The patient has a normal baseline creatinine. Hopeful this will resolve with fluid hydration. 6. Questionable left lower extremity cellulitis. Patient was receiving treatment on his last admission. Still has mild erythema and warmth to that area, as well as an elevated white blood cell count. We will check blood cultures as well as starting the patient on clindamycin 600 mg intravenous every 8 hours. 7. Further recommendations per patient's clinical course. Dictated by ERICK Shafer for Kirill Erickson MD cc: ERICK Shafer MD Peter Johnson, MD pt examined, agree with above, elevated liver enzymes, could be related to recent clindamycin exposure, will change abx to vancomycin due to cellullitis of lle and follow clinically, APENOT MTDD
[2017-03-14 07:24] LABS: IRON SATURATION 8 %; TIBC 213 ug/dL; TOTAL IRON 16 ug/dL (53-167); UNBOUND IRON 197 ug/dL (112-346)
[2017-03-14] MEDS: LOVENOX SUBQ SCH (07:50)
--- NOTE | 2017-03-14 07:53 | EKG Report ---
Test Performed on : 03/14/2017 06:02:44 AM Test Reason : cp Blood Pressure : / mmHG Vent. Rate : 114 BPM Atrial Rate : 133 BPM P-R Int : 000 ms QRS Dur : 088 ms QT Int : 334 ms P-R-T Axes : 000 045 006 degrees QTc Int : 460 ms Atrial fibrillation. with rapid ventricular response. Low voltage QRS Abnormal ECG When compared with ECG of 14-MAR-2017 02:40, (Unconfirmed) Atrial fibrillation. has replaced Junctional rhythm. Confirmed by Geoffrey Burnette MD ([id number]) on 03/14/2017 8:50:45 AM
[2017-03-14] MEDS: NS 1,000 ML IV SCH ×3 (07:59→20:08)
[2017-03-14] MEDS: CARDIZEM 100 MG/NS 100 MG/100 ML IVPB IV SCH ×2 (08:39→17:04)
[2017-03-14] MEDS: VANCOMYCIN 2 GM in NS 500 ML IV SCH (09:05)
[2017-03-14] MEDS: ASPIRIN EC PO SCH (09:06)
[2017-03-14] MEDS: CULTURELLE PO SCH (09:06)
[2017-03-14 09:44] LABS: HEMOGLOBIN A1C 6.3 % (4.8-6.0)
--- NOTE | 2017-03-14 11:07 | Diag Imaging Result Doc PS360 ---
EXAM: THORAX/ABDOMEN/PELVIS W/O CONT INDICATION: abdominal pain/leukocytosis TECHNIQUE: Dose reduction protocol was used. COMPARISON: None. FINDINGS: CHEST: There is a large pericardial fluid collection putting the patient at risk for tamponade. The density of the fluid is somewhat higher than that of simple fluid indicating some internal proteinaceous debris/blood products. There are small shotty nonspecific mediastinal lymph nodes. There is a small left pleural effusion and a trace right effusion. There is mild bibasilar atelectasis. Superimposed mild infiltrate at the left lung base is possible. The lungs are grossly clear, otherwise. ABDOMEN/PELVIS: There is probably mild hepatic steatosis. There are no renal or ureteral stones and there is no obstructive uropathy. The appendix is normal. There is a small amount of nonspecific fluid layering in the pelvis. There is a tiny left inguinal hernia containing only fat. The GI tract is essentially unremarkable. There appears to be a small amount of fluid and perhaps mild inflammatory change around the duodenum near the head of the pancreas. Further evaluation is limited with no IV or oral contrast. Correlate clinically to evaluate for duodenitis. The adrenal glands are unremarkable. The spleen is grossly unremarkable. IMPRESSION: 1.Large pericardial fluid collection putting the patient at risk for tamponade. 2.Small left pleural effusion and trace right effusion with adjacent atelectasis. Superimposed mild infiltrate at the left lung base is also possible. 3.Possible mild inflammatory change around the proximal duodenum that is nonspecific. Further evaluation is limited by lack of IV and oral contrast. Consider duodenitis. 4.Small amount of nonspecific fluid layering in the pelvis. 5.Other incidental/nonacute findings detailed above. Electronically signed by Hemant Manning 03/14/2017 11:05 AM
[2017-03-14] MEDS: DILAUDID IV PRN ×2 (11:38→17:03)
[2017-03-14] MEDS: HUMULIN R SUBQ SCH ×3 (11:44→20:08)
--- NOTE | 2017-03-14 12:10 | Diag Imaging Result Doc PS360 ---
EXAM: US ABDOMEN-COMPLETE HISTORY: ruq pain elevated LFTS TECHNIQUE: Abdominal ultrasound COMMENT: The pancreatic head and body are within normal limits. The aorta and inferior vena cava are normal where there are visible. The liver is unremarkable. There is antegrade flow in the portal vein. There is no evidence of biliary dilatation the common bile duct measuring 5 mm. The gallbladder is clear and nontender. There is antegrade flow in the portal vein. The spleen is not enlarged. There is slight prominence of the collecting system of the left kidney. The right kidney is unremarkable. IMPRESSION: Questionable minimal left hydronephrosis, otherwise no evidence of acute disease. Electronically signed by Gvain Brooks 03/14/2017 12:08 PM
--- NOTE | 2017-03-14 14:53 | Diag Imaging Result Doc PS360 ---
EXAM: CHEST-2 VIEWS INDICATION: C/P TECHNIQUE: 2 views COMPARISON: 02/26/2017 FINDINGS: There is suggestion of trace left basilar atelectasis. The lungs are grossly clear, otherwise. There is no evidence of pneumothorax. The cardiomediastinal silhouette is significantly larger than the fairly recent previous study. A CT of the chest that was also performed today showed that this is due to a large pericardial effusion. The central vasculature is grossly unremarkable. IMPRESSION: 1.Minimal left basilar atelectasis. 2.Interval significant increase in size of the cardiomediastinal silhouette that is known to represent a large pericardial effusion, which is also seen on a CT chest performed the same day. Electronically signed by Hemant Manning 03/14/2017 2:51 PM
[2017-03-14 16:39] LABS: URINE CULTURE NEEDED? NO; URINE MICRO REVIEW NEEDED? NO; URINE SOURCE CLEAN CATCH
[2017-03-14 16:44] LABS: BILIRUBIN URINE NEGATIVE (NEGATIVE); BLOOD URINE SMALL (NEGATIVE); COLOR YELLOW; GLUCOSE URINE NEGATIVE (NEGATIVE); LEUKOCYTES URINE NEGATIVE (NEGATIVE); NITRITE URINE NEGATIVE (NEGATIVE); PH URINE 5.5; PROTEIN URINE 30 mg/dL (NEGATIVE); SP GRAVITY URINE 1.028; TURBIDITY URINE CLEAR (CLEAR); UR EPITHELIAL CELLS <10 /HPF (<10); URINE BACTERIA NEGATIVE /HPF; URINE RBC <10 /HPF (<10); URINE WBC <10 /HPF (<10); UROBILINOGEN URINE NORMAL (NORMAL)
[2017-03-14 16:58] LABS: UR CREAT RANDOM 193.7 mg/dL (14-26); UR PROT RANDOM 45.8 mg/dL
[2017-03-14 17:01] LABS: UR AMPHETAMINES QUAL NONE DETECTED (NONE DETECT); UR BARBITUATES QUAL NONE DETECTED (NONE DETECT); UR BENZODIAZEPIN QUAL NONE DETECTED (NONE DETECT); UR CANNABINOIDS QUAL PRESUMPTIVE POSITIVE (NONE DETECT); UR COCAINE QUAL NONE DETECTED (NONE DETECT); UR METHADONE QUAL NONE DETECTED (NONE DETECT); UR OPIATES QUAL PRESUMPTIVE POSITIVE (NONE DETECT); UR OXYCODONE QUAL PRESUMPTIVE POSITIVE (NONE DETECT); UR PCP QUAL NONE DETECTED (NONE DETECT)
[2017-03-14] MEDS ORDERED: TUBERSOL ID ONE (19:59)
[2017-03-14] MEDS: COLCRYS PO SCH (20:46)
[2017-03-14] MEDS: MOTRIN PO SCH (20:46)
[2017-03-15] MEDS: CARDIZEM 100 MG/NS 100 MG/100 ML IVPB IV SCH ×2 (02:12→10:16)
[2017-03-15] MEDS: NS 1,000 ML IV SCH ×3 (03:04→13:19)
[2017-03-15] MEDS: MOTRIN PO SCH ×4 (03:04→20:39)
[2017-03-15 04:48] LABS: MANUAL DIFF NEEDED? NO
[2017-03-15 04:56] LABS: BASO% 0.9 % (0.0-0.8); EOS# 0.04 X1000 (0.0-0.7); EOS% 0.5 % (0.0-10.0); HEMATOCRIT 34.5 % (42.0-52.0); HEMOGLOBIN 10.9 g/dL (14.0-18.0); LYMPH# 1.66 X1000 (1.2-3.4); LYMPH% 20.4 % (20.5-51.1); MCH 30.2 PG (27-31); MCHC 31.6 g/dL (33-37); MCV 95.6 FL (81-99); MONO# 0.93 X1000 (0.11-0.59); MONO% 11.4 % (1.7-9.3); MPV 10.8 FL (7.4-10.4); NEUT% 66.8 % (42.2-75.2); PLT 322 X1000 (130-400); RBC 3.61 XMIL (4.7-6.1)
[2017-03-15] MEDS: LOVENOX SUBQ SCH (05:30)
[2017-03-15 05:32] LABS: AGAP 14; BUN 21 mg/dL (8-22); CALCIUM 8.2 mg/dL (8.8-10.2); CHLORIDE 98 mmol/L (98-107); COSMO 279; POTASSIUM 4.1 mmol/L (3.5-5.1); SODIUM 138 mmol/L (136-145); TCO2 26 mmol/L (25-35)
[2017-03-15] MEDS: HUMULIN R SUBQ SCH ×4 (06:09→22:22)
--- NOTE | 2017-03-15 06:45 | CONSULTATION ---
DATE OF CONSULTATION: 03/14/2017 REASON FOR CONSULTATION: Atrial fibrillation. IMPRESSION: 1. Chronic atrial arrhythmias. Patient has been in atrial flutter for some time, but has now converted to atrial fibrillation with increased ventricular rate response. 2. Pleuritic right parasternal chest pain, with moderate to large pericardial effusion evident on imaging with echocardiography at the bedside. Suspect acute pericarditis. Given that he just recently completed extended course of antibiotic therapy with Levaquin and clindamycin, it would seem less likely to be bacterial in nature. He does not appear particularly toxic. He manifests no signs of tamponade and his blood pressure is stable. 3. Recent left lower extremity cellulitis. 4. Hypertension. RECOMMENDATIONS: 1. Rate control with Cardizem. 2. Add nonsteroidal anti-inflammatory and colchicine. 3. Formal echocardiography in a.m. 4. Tuberculin skin test. HISTORY: This 56-year-old white male is with a past history of atrial flutter, hypertension, and recent left lower extremity cellulitis. Was admitted on transfer from the emergency room at [facility] for atrial fibrillation with rapid ventricular rate. He presented there with recent onset of sharp pleuritic right parasternal chest discomfort. This had developed over the past 24-36 hours. Discomfort seems to be somewhat worse if he is lying down, and better if he sits up. He is not aware of any fever. He has had some sense that he was having chills at times. He was recently hospitalized at [facility] with left lower extremity cellulitis. He was found to be in atrial flutter, as he had been in atrial flutter 6 months ago. He was not taking Cardizem that had been prescribed previously for rate control. He was restarted on Cardizem. Echocardiography indicated normal left ventricular ejection fraction. There was no evidence of pericardial effusion. He continued course of Levaquin and clindamycin following discharge. He just finished antibiotic therapy this past Tuesday. Yesterday, he started having pleuritic right- sided chest discomfort that progressively got worse, which prompted him to come to the emergency room at [place]. He was found to have atrial fibrillation, with rapid ventricular rate. He was subsequently transferred over to the ICU here at [facility]. He denies any other kind of chest discomfort. PAST MEDICAL HISTORY: 1. Hypertension. 2. Atrial flutter, and now atrial fibrillation. 3. Chronic right shoulder pain, for which he takes narcotics. 4. Recent left lower extremity cellulitis, treated with extended course of Levaquin and clindamycin. 5. History of noncompliance for financial reasons. PAST SURGICAL HISTORY: None. ALLERGIES: No known drug allergies. SOCIAL HISTORY: He is . Lives with his . 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 However, he does not have any health insurance through his employment. He has been smoking a pack and a half of cigarettes per day, but has cut back since his last admission. He is rather vague as to his alcohol intake. He previously was drinking 1-2 beers daily for an extended period of time. He may occasionally smoke marijuana, but relates he has not smoked any marijuana in several weeks. There is a past history of cocaine use 8 years ago. He had worked at a escape wheel tooth cutter shop where there was a concern of possible tuberculosis. FAMILY HISTORY: Negative for premature heart disease. REVIEW OF SYSTEMS: Pulmonary: Noteworthy for some cough productive of clear sputum. He has had pleuritic chest pain. Gastrointestinal: Negative. Constitutional: Negative, beyond history of present illness. The remainder of the review of systems negative, beyond history of present illness, with 14 total systems reviewed. PHYSICAL EXAMINATION: General: An older middle-aged male, in no distress. Vital Signs: Recorded stable, including a heart rate of 110 to 120 beats per minute, with the ECG monitor showing atrial fibrillation. Blood pressure 120/80. Oxygen saturation 94% on 2 L nasal cannula. HEENT: Extraocular movements intact. Mucous membranes are moist. Neck: Supple. Jugular venous pressure appears to be normal based on inspection of neck veins. Chest: Clear to auscultation. Cardiac: An irregular rate and rhythm, without appreciable murmur, rub, or gallop. Abdomen: Soft, nontender. Bowel sounds normal. Extremities: Noteworthy for resolving cellulitis, with some scabs in the posterior aspect of distal left lower extremity. There is no evidence of edema. Neurologic: Reveals him to be alert, fully oriented. Speech is fluent. Moves all 4 extremities equally well. LABORATORY DATA: ECG shows atrial fibrillation, with mildly increased ventricular rate response. Chest CT reports pericardial effusion. Bedside echocardiography performed by myself and demonstrates a [id number] circumferential pericardial effusion, without echocardiographic markers for tamponade. Left ventricular ejection fraction is normal. Inferior vena cava collapses readily on casual respiration. Laboratory data is remarkable for white blood cell count of 17.7, hematocrit 37.8. BUN 17, creatinine 1.5. Sedimentation rate 75. AST 214, ALT 167. C- reactive protein. 308.38. Urine drug screen positive for opiates and cannabinoids. cc: Benny Last MD
--- NOTE | 2017-03-15 06:57 | Extremity Venous Study ---
PROCEDURE NAME: Venous U/S Left Leg - 03/14/2017 REQUESTING PHYSICIAN: Dr. Erickson. FORMING PROCESS WORKER: Hesham. INDICATIONS: Edema of the left lower extremity. PROCEDURE PERFORMED: Left lower extremity venous duplex and color flow imaging. EQUIPMENT: [employer] Pvtid E9 ultrasound system with a 9 LD transducer. FINDINGS: Images of the left lower extremity venous system with a comparison shot of the right common femoral vein were obtained in both sagittal and transverse planes. Doppler was used to evaluate veins for spontaneity, phasicity, respiratory excursion, and digital augmentation. RESULTS: Normal venous compression, normal venous flow. No obvious superficial or deep venous thrombosis noted. INTERPRETATION: Essentially normal left lower extremity venous study. cc: MD Kirill Alexander MD
[2017-03-15] MEDS: VANCOMYCIN 2 GM in NS 500 ML IV SCH (08:28)
[2017-03-15] MEDS: COLCRYS PO SCH ×2 (08:28→20:39)
[2017-03-15] MEDS: ASPIRIN EC PO SCH (08:29)
[2017-03-15] MEDS: CULTURELLE PO SCH (08:29)
[2017-03-15] MEDS: ATIVAN IV PRN (10:11)
[2017-03-15 10:13] LABS: INR 1.49
--- NOTE | 2017-03-15 10:34 | ECHO REPORT ---
ORDER DATE: 03/14/2017 ECHOCARDIOGRAPHIC MEASUREMENTS: 1. Interventricular septum 1, left ventricular posterior wall 1.1, diastolic diameter 4.7, left atrium 4.3, aorta 3.4. 2. Normal left ventricular cavity size with an estimated ejection fraction of 60%. 3. Aortic valve leaflets are trileaflet. Mitral valve was normal. Tricuspid valve was normal. Pulmonic valve was normal. 4. There is no aortic stenosis or regurgitation. There is mild mitral regurgitation, mild tricuspid regurgitation. Peak velocity across the tricuspid valve was 2.7 m/sec. There is mild pulmonary regurgitation. 5. Saline contrast study was negative for patent foramen ovale. 6. There is moderate circumferential pericardial effusion. There is no evidence of tamponade. cc: MD Benny Jimenez MD
[2017-03-15] MEDS ORDERED: NS 250 ML ONE (10:39)
[2017-03-15 11:53] LABS: HEPATITIS PROFILE ACUTE SEE COMMENTS
--- NOTE | 2017-03-15 13:01 | Diag Imaging Result Doc PS360 ---
CHEST-PORTABLE - 03/15/2017 INDICATION: picc line placement right upper arm TECHNIQUE: COMPARISON: 03/14/2017 FINDINGS: There is a right PICC line in good position with the catheter tip at the upper SVC. Stable cardiomegaly and pulmonary vascular congestion. No new or focal infiltrates. IMPRESSION: Good right PICC line placement. Electronically signed by Toan Billy 03/15/2017 12:59 PM
[2017-03-15] MEDS ORDERED: CARDIZEM 100 MG/NS 100 MG/100 ML IVPB IV SCH (13:23)
[2017-03-15] MEDS: DILAUDID IV PRN ×3 (13:27→20:39)
[2017-03-15 13:33] LABS: ALBUMIN 2.9 g/dL (3.5-5.0); DIRECT BILIRUBIN 0.3 mg/dL (0.00-0.20); TOTAL BILIRUBIN 0.77 mg/dL (0.20-1.00); TOTAL PROTEIN 6.8 g/dL (6.3-8.3)
--- NOTE | 2017-03-15 16:21 | PROGRESS NOTE ---
DATE: 03/15/2017 SUBJECTIVE: The patient was upset this morning but he has since calmed down and feeling better. OBJECTIVE: Vital Signs: Temperature 96.8 degrees, blood pressure 117/78, heart rate 107, respirations 38, O2 saturations 95% on 2 L nasal cannula. General: This is an elderly male, lying in bed, in no acute distress. Head: Normocephalic, atraumatic. Heart: S1, S2. Normal. Irregularly irregular rhythm. Lungs: Equal breath sounds bilaterally. No crackles, no rales. Abdomen: Positive bowel sounds. Soft, nontender, nondistended. Extremities: No edema. No cyanosis. No calf tenderness. The patient does have a large scab on his left leg. Neurologic: The patient is alert and oriented x3. LABS: White blood cell count 8.1, hemoglobin 10, hematocrit 34, platelets 122,000. INR 1.49, sodium 138, potassium 4.1, chloride 98, CO2 26, BUN 21, creatinine 0.9, glucose 138, AST 82, AST 131. ASSESSMENT AND PLAN: 1. Acute pericarditis with a moderate pericardial effusion. Management as per the fish net stringer. The patient is currently on ibuprofen and colchicine. 2. Atrial fibrillation with rapid ventricular response. The patient is on a Cardizem drip. Further recommendations as per the fish net stringer. 3. Alcohol abuse. We will need to monitor the patient closely for alcohol withdrawal. We will start the patient on p.r.n. Ativan. 4. Left leg eschar. Continue with wound care. 5. Leukocytosis. Resolved. 6. Transaminitis. Improved. We will continue to monitor closely. 7. Diabetes mellitus type 2. Continue on sliding scale insulin. 8. Constipation. We will start the patient on scheduled laxative therapy. 9. Deep vein thrombosis prophylaxis. Continue on Lovenox. cc: Umu Fernández MD
[2017-03-15] MEDS: CARDIZEM PO SCH ×2 (17:29→22:21)
--- NOTE | 2017-03-15 17:48 | PROGRESS NOTE ---
DATE: 03/15/2017 CARDIOLOGY FOLLOW-UP NOTE: SUBJECTIVE: Patient relates chest discomfort has improved considerably. He notes pleuritic chest pain in the right parasternal region only if he takes a very deep breath. He denies shortness of breath. OBJECTIVE: Vital Signs: Blood pressure 117/78, heart rate 107 and irregular, with ECG monitor showing atrial fibrillation. Oxygen saturation 95% on nasal cannula oxygen at 2 L/minute. Neck: There is no significant jugular venous distention. Chest: Clear to auscultation. Cardiac Exam: Reveals a regular rate and rhythm without appreciable murmur, rub, or gallop. Abdomen: Soft, nontender. Extremities: Without edema. LABORATORY DATA: Includes a white blood cell count 8.13, sedimentation rate 75, INR 1.5 with ProTime of 16.0. AST 82, ALT 131. IMPRESSION: 1. Chronic atrial arrhythmias. Patient currently in atrial fibrillation with controlled ventricular rate response on intravenous Cardizem. 2. Suspect acute pericarditis. The patient presented with pleuritic chest pain and pericardial effusion. Patient improving with ibuprofen and colchicine. 3. Recent left lower extremity cellulitis. 4. Hypertension. 5. Recurrent issues with noncompliance. RECOMMENDATIONS: 1. Continue ibuprofen and colchicine. 2. Transition to oral Cardizem for rate control. 3. Follow up tuberculin skin test. cc: Benny Last MD
[2017-03-15] MEDS: SENOKOT PO SCH (22:21)
[2017-03-15] MEDS: MIRALAX PO SCH (22:22)
[2017-03-16] MEDS: MOTRIN PO SCH ×4 (03:41→20:03)
[2017-03-16] MEDS: CARDIZEM PO SCH ×4 (03:41→20:03)
[2017-03-16] MEDS: DILAUDID IV PRN ×4 (03:56→20:17)
[2017-03-16 04:30] LABS: MANUAL DIFF NEEDED? NO
[2017-03-16 04:34] LABS: BASO% 1.2 % (0.0-0.8); EOS# 0.15 X1000 (0.0-0.7); EOS% 2.1 % (0.0-10.0); HEMATOCRIT 32.3 % (42.0-52.0); HEMOGLOBIN 10.3 g/dL (14.0-18.0); LYMPH# 1.54 X1000 (1.2-3.4); LYMPH% 21.3 % (20.5-51.1); MCH 30.3 PG (27-31); MCHC 31.9 g/dL (33-37); MONO# 0.72 X1000 (0.11-0.59); NEUT% 65.4 % (42.2-75.2); PLT 308 X1000 (130-400)
[2017-03-16 05:26] LABS: AGAP 10; ALBUMIN 2.6 g/dL (3.5-5.0); ALKALINE PHOSPHATASE 78 U/L (32-122); BUN 18 mg/dL (8-22); CALCIUM 8.1 mg/dL (8.8-10.2); CHLORIDE 103 mmol/L (98-107); COSMO 281; GOT 85 U/L (10-34); GPT 146 U/L (10-44); POTASSIUM 4.3 mmol/L (3.5-5.1); SODIUM 140 mmol/L (136-145); TCO2 27 mmol/L (25-35); TOTAL BILIRUBIN 0.48 mg/dL (0.20-1.00); TOTAL PROTEIN 6.1 g/dL (6.3-8.3)
[2017-03-16] MEDS: HUMULIN R SUBQ SCH ×4 (06:15→20:03)
[2017-03-16] MEDS: LOVENOX SUBQ SCH (06:15)
[2017-03-16] MEDS: COLCRYS PO SCH ×2 (08:13→20:03)
[2017-03-16] MEDS: VANCOMYCIN 2 GM in NS 500 ML IV SCH (08:13)
[2017-03-16] MEDS: ASPIRIN EC PO SCH (08:13)
[2017-03-16] MEDS: CULTURELLE PO SCH (08:15)
[2017-03-16] MEDS: ATIVAN IV PRN ×2 (08:15→14:29)
[2017-03-16] MEDS: MIRALAX PO SCH ×2 (08:15→20:03)
--- NOTE | 2017-03-16 14:33 | PROGRESS NOTE ---
DATE: 03/16/2017 SUBJECTIVE: The patient is resting comfortably in bed. He states that he has not had a bowel movement, but he has been refusing to take the MiraLAX because he wants to wait until he moves to a regular room. OBJECTIVE: Vital Signs: Temperature 96 degrees, blood pressure 126/98, heart rate 110, respirations 18, O2 saturations 96% on 2 L nasal cannula. General: This is an elderly male, lying in bed in no acute distress. Head: Normocephalic, atraumatic. Heart: S1, S2. Normal. Tachycardic. Lungs: Clear to auscultation bilaterally. No wheezes, no rales, no rhonchi. Abdomen: Positive. Bowel sounds soft. Nontender and not distended. Extremities: The patient has an eschar on the left leg. Neurologic: The patient is alert and oriented x3. LABS: White blood cell count 7.2, hemoglobin 10, hematocrit 32, platelets 308. Sodium 140, potassium 4.3, chloride 103, CO2 27, BUN 18, creatinine 0.7, glucose 92. Calcium 8.1, AST 85, ALT 146, total bilirubin 0.4, alkaline phosphatase 78, albumin 2.6. ASSESSMENT AND PLAN: 1. Acute pericarditis with a moderate pericardial effusion. Continue on colchicine and ibuprofen. 2. Atrial fibrillation. The patient is now on oral Cardizem. Further recommendations as per the foundry process engineer. 3. Alcohol abuse. We will continue to monitor the patient for signs of withdrawal. Continue with as-needed Ativan. 4. Left leg eschar. Continue with wound care. 5. Transaminitis. Stable. The patient does consume large amounts of alcohol. He has been counseled about cessation. 6. Constipation. Continue with scheduled laxative therapy. 7. Diabetes mellitus type 2. Continue on sliding scale insulin. 8. Deep vein thrombosis prophylaxis. Continue on Lovenox. The patient is stable for transfer to the medical floor. We will consult physical therapy. cc: Umu Fernández MD [facility]
--- NOTE | 2017-03-16 17:06 | PROGRESS NOTE ---
DATE: 03/16/2017 SUBJECTIVE: Patient continues without chest discomfort or dyspnea. OBJECTIVE: Vital Signs: Blood pressure 119/83, heart rate 110 and irregular with ECG monitor showing atrial fibrillation. There is no significant jugular venous distention. Chest: Clear to auscultation. Cardiac Exam: Reveals an irregular rate and rhythm without appreciable murmur or gallop. There is no evidence of peripheral edema. LABORATORY DATA: Includes a white blood cell count 7.22. Hematocrit 32.3. Platelet count 308,000. BUN 18, creatinine 0.7. IMPRESSION: 1. Chronic atrial arrhythmias. Patient currently in atrial fibrillation with controlled ventricular rate response on oral Cardizem. Heart rate mildly increased at times. 2. Acute pericarditis. Probably viral in origin. Clinically improved with ibuprofen and colchicine. 3. Recent left lower extremity cellulitis. 4. Hypertension. 5. Recurrent issues with noncompliance. RECOMMENDATIONS: 1. Increase oral diltiazem to improve rate control. 2. Continue ibuprofen and colchicine. 3. Follow up tuberculin skin test. 4. Given patient's noncompliance with medications as well as medical followup, he is not a suitable candidate for anticoagulation. This has been discussed with the patient on previous occasions. cc: Benny Last MD
[2017-03-16] MEDS: SENOKOT PO SCH (20:04)
[2017-03-17] MEDS: MOTRIN PO SCH ×5 (02:17→20:44)
[2017-03-17] MEDS: DILAUDID IV PRN ×5 (02:17→20:45)
[2017-03-17] MEDS: LOVENOX SUBQ SCH (05:13)
[2017-03-17] MEDS: CARDIZEM PO SCH ×2 (05:13→14:01)
[2017-03-17 05:48] LABS: MANUAL DIFF NEEDED? NO
[2017-03-17 05:58] LABS: EOS# 0.16 X1000 (0.0-0.7); EOS% 2.7 % (0.0-10.0); HEMATOCRIT 33.6 % (42.0-52.0); HEMOGLOBIN 10.6 g/dL (14.0-18.0); LYMPH# 1.59 X1000 (1.2-3.4); LYMPH% 26.5 % (20.5-51.1); MCH 29.8 PG (27-31); MCHC 31.5 g/dL (33-37); MCV 94.4 FL (81-99); MPV 10.6 FL (7.4-10.4); NEUT% 59.8 % (42.2-75.2); PLT 329 X1000 (130-400); RBC 3.56 XMIL (4.7-6.1)
[2017-03-17 06:15] LABS: AGAP 10; BUN 15 mg/dL (8-22); CALCIUM 8.7 mg/dL (8.8-10.2); CHLORIDE 101 mmol/L (98-107); COSMO 280; POTASSIUM 4.1 mmol/L (3.5-5.1); SODIUM 140 mmol/L (136-145); TCO2 29 mmol/L (25-35)
[2017-03-17] MEDS: HUMULIN R SUBQ SCH ×4 (07:20→20:46)
[2017-03-17] MEDS: COLCRYS PO SCH ×2 (08:00→20:44)
[2017-03-17] MEDS: ASPIRIN EC PO SCH (08:00)
[2017-03-17] MEDS: CULTURELLE PO SCH (08:00)
[2017-03-17] MEDS: MIRALAX PO SCH ×2 (08:01→20:46)
[2017-03-17] MEDS: VANCOMYCIN 2 GM in NS 500 ML IV SCH ×3 (08:58→22:40)
--- NOTE | 2017-03-17 15:20 | PROGRESS NOTE ---
DATE: 03/17/2017 SUBJECTIVE: The patient is resting comfortably in bed. No acute events noted overnight. OBJECTIVE: Vital Signs: Temperature 98.5 degrees, blood pressure 132/89, heart rate 92, respirations 18, and O2 saturation is 92% on 2L nasal cannula. General: This is an elderly male, lying in bed in no acute distress. HEENT: Head normocephalic, atraumatic. Heart: S1 and S2 normal. Lungs: Clear to auscultation bilaterally. Abdomen: Positive bowel sounds. Soft, nontender, nondistended. Extremities: The patient does have a large eschar on his left leg that is stable. Neurologic: The patient is alert and oriented x3. LABORATORIES: White blood cell count 6, hemoglobin 10, hematocrit 33, platelets 329,000. Sodium 140, potassium 4.1, chloride 101, CO2 of 29, BUN 15, creatinine 0.7, glucose 89. ASSESSMENT AND PLAN: 1. Acute pericarditis. Continue on colchicine and ibuprofen. 2. Moderate pericardial effusion. Stable. 3. Atrial fibrillation. The patient's heart rate is improved. Continue on Cardizem. 4. Left leg eschar. Continue with wound care. 5. Alcohol abuse. The patient has been counseled about alcohol cessation. 6. Constipation. Continue with scheduled laxative therapy. 7. Diabetes mellitus, type 2. Continue on sliding scale insulin. 8. Deep vein thrombosis prophylaxis. Continue on Lovenox. 9. Will consult Physical Therapy. cc: Umu Fernández MD
[2017-03-17] MEDS: CARDIZEM CD PO SCH (16:12)
--- NOTE | 2017-03-17 16:21 | PROGRESS NOTE ---
DATE: 03/17/2017 SUBJECTIVE: Patient continues without chest discomfort or dyspnea on room air. OBJECTIVE: Vital Signs: Blood pressure 148/89, heart rate 100, oxygen saturation 100 and regular. Neck: There is no significant jugular venous distention. Chest: Clear to auscultation. Cardiac examination: Reveals an irregular rate and rhythm without appreciable murmur, rub, or gallop. There is no evidence of peripheral edema. IMPRESSION: 1. Chronic atrial arrhythmias. Patient currently in atrial fibrillation with controlled ventricular rate response. 2. Acute pericarditis probably viral in origin. The patient clinically improved. 3. Recent left lower extremity cellulitis. 4. Hypertension. 5. Recurrent issues with noncompliance. RECOMMENDATIONS: 1. Continue long-acting oral diltiazem for rate control. 2. Continue ibuprofen and colchicine. 3. Arrange follow-up limited echocardiography. If pericardial effusion is stable and not increasing, it would be reasonable to discharge him home. 4. Given patient's noncompliance with medications as well as medical followup, he is a poor candidate for anticoagulation. This was discussed with the patient. cc: Benny Last MD
[2017-03-17] MEDS: SENOKOT PO SCH (20:46)
[2017-03-18] MEDS: DILAUDID IV PRN ×5 (00:52→22:02)
[2017-03-18] MEDS: MOTRIN PO SCH ×4 (02:19→21:50)
[2017-03-18] MEDS: LOVENOX SUBQ SCH (06:00)
[2017-03-18] MEDS: HUMULIN R SUBQ SCH ×3 (06:31→19:01)
[2017-03-18 06:47] LABS: AGAP 8; BUN 12 mg/dL (8-22); CALCIUM 8.3 mg/dL (8.8-10.2); CHLORIDE 104 mmol/L (98-107); COSMO 282; POTASSIUM 3.8 mmol/L (3.5-5.1); SODIUM 142 mmol/L (136-145); TCO2 30 mmol/L (25-35)
[2017-03-18] MEDS: ATIVAN IV PRN ×3 (08:49→17:16)
[2017-03-18] MEDS: COLCRYS PO SCH ×2 (08:51→21:50)
[2017-03-18] MEDS: CULTURELLE PO SCH (08:51)
[2017-03-18] MEDS: ASPIRIN EC PO SCH (08:51)
[2017-03-18] MEDS: CARDIZEM CD PO SCH (08:51)
[2017-03-18] MEDS: MIRALAX PO SCH ×2 (08:53→21:53)
[2017-03-18] MEDS: VANCOMYCIN 2 GM in NS 500 ML IV SCH ×2 (12:31→22:00)
--- NOTE | 2017-03-18 14:56 | PROGRESS NOTE ---
DATE: 03/18/2017 SUBJECTIVE: The patient is sitting in the chair. He states that he feels a lot better and would like to go home today. OBJECTIVE: Vital Signs: Temperature 97.8, blood pressure 130/84, heart rate 94 , respirations 20, O2 saturations 97% on room air. General: Elderly male, sitting in a chair. No acute distress. Head: Normocephalic, atraumatic. Heart: S1, S2. Normal. Regular rate and rhythm. Lungs: Equal air entry bilaterally. No crackles. Abdomen: Positive bowel sounds. Soft, nontender, nondistended. Extremities: No edema. No cyanosis. Neurologic: The patient is alert and oriented x3. LABS: Sodium 142, potassium 3.8, chloride 104, CO2 of 30, BUN 12, creatinine 0.6. ASSESSMENT AND PLAN: 1. Acute pericarditis. Continue on colchicine and ibuprofen. 2. Moderate pericardial effusion. Patient had an echocardiogram done yesterday. We will await the results of this study. 3. Atrial fibrillation. Rate controlled. Continue on Cardizem. 4. Left leg cellulits with eschar. Continue with wound care and antibiotic therapy. 5. Constipation. Continue with scheduled laxative therapy 6. Diabetes mellitus type 2. The patient will be started on metformin. We will also provide the patient with a prescription for glucometer, lancets and test strips. 7. Deep vein thrombosis prophylaxis. Continue on Lovenox. DISPOSITION: We will plan to discharge the patient home once cleared by the alley cleaner. cc: Umu Fernández MD [facility]
--- NOTE | 2017-03-18 15:48 | PROGRESS NOTE ---
DATE: 03/18/2017 SUBJECTIVE: Patient relates feeling well and denies any chest discomfort or dyspnea. Chest pain is pretty much resolved. OBJECTIVE: Vital Signs: Blood pressure 130/84, heart rate 94 and irregular with ECG monitor showing atrial fibrillation, temperature 97.8 degrees. There is no significant jugular venous distention. Chest: Clear to auscultation. Cardiac: Reveals an irregular rate and rhythm without appreciable murmur, rub, or gallop. There is no evidence of peripheral edema. Limited followup echocardiography preliminarily per my review shows no change in pericardial effusion with moderate to large circumferential pericardial effusion without echocardiographic markers of tamponade. LABORATORY DATA: Remarkable for white blood cell count 6, hematocrit 33.6. BUN 12. Creatinine 0.6. IMPRESSION: 1. Acute pericarditis. Possibly viral in origin. However, in this clinical setting, cannot entirely exclude bacterial etiology. Patient does not appear toxic and remains afebrile without significant leukocytosis. Moderate to large circumferential pericardial effusion remains without echocardiographic markers of tamponade. Size of pericardial effusion probably more favors pericardial window for safe means to drain. 2. Chronic atrial arrhythmias. Patient currently in atrial fibrillation with controlled ventricular response. 3. Recent left lower extremity cellulitis. Blood cultures consistently negative on previous admission and this admission. However, previous wound cultures were positive for Streptococcus pyogenes and Staphylococcus aureus. 4. Hypertension. 5. Current issues with noncompliance. RECOMMENDATIONS: 1. Continue long-acting diltiazem for rate control. 2. Continue ibuprofen and colchicine. 3. Continue parenteral antibiotics with vancomycin. Given concerns regarding possibility of bacterial pericarditis, would consult Infectious Disease. 4. Given desire to definitively determine if bacterial pericarditis and remedy significant effusion, it would appear better to pursue pericardial window/drainage. Surgical consult with Dr. Cuba has been made. cc: Benny Last MD
--- NOTE | 2017-03-18 16:37 | CONSULTATION ---
DATE OF CONSULTATION: 03/18/2017 CONCLUSION: The patient has a leg cellulitis from which methicillin-resistant Staph aureus and group A streptococcus were isolated. He also now has developed a pericardial effusion that he previously did not have and the concern is that he may have a purulent pericarditis. He is not acting as if he has a very toxic infection but this may be because he has been on antibiotics for a while now. RECOMMENDATIONS: I think it would be advantageous to aspirate the pericardium and send the fluid for cell count and culture. I agree with treating the patient with vancomycin. DISCUSSION: The patient recently was in [facility] with cellulitis of the left leg. Culture grew methicillin-resistant Staph aureus and group A strep as mentioned above. Patient got much better on it. His leg is less swollen, erythematous and painful. He was admitted to the hospital this time with chest discomfort. He was found to have a pericardial effusion which he previously had not had. Patient has not been having fever or shaking chills and his chest pain is much better now. PAST MEDICAL HISTORY, REVIEW OF SYSTEMS: Eyes and ears: He denies difficulty hearing or seeing. Neck: No stiffness. Respiratory: No cough or shortness of breath. Cardiovascular: The patient did have some chest pain as mentioned above. GI: No nausea, vomiting, or diarrhea. : No dysuria or flank pain. Bones, joints, muscles: No swollen joints or myalgias. Endocrine: The patient has been diagnosed as having diabetes. He does not have thyroid disease. Neurologic: The patient is not having headaches or loss of motor or sensory function. Integument: No rash. PREVIOUS HOSPITALIZATIONS AND OPERATIONS: Recently he was in [place] because of his left leg infection. He also had cardiac arrhythmias for which he was hospitalized namely atrial fibrillation and atrial flutter. MEDICAL DISEASES: Positive for diabetes mellitus, atrial fibrillation and atrial flutter, hypertension. INFECTIOUS DISEASE HISTORY: Positive for UTI and staph and strep infection of the left leg. FAMILY HISTORY: Positive for diabetes mellitus, hypertension, stroke and cancer. SOCIAL HISTORY: [place] He smokes cigarettes. He drinks alcoholic beverages. He occasionally smokes marijuana. 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 MEDICATIONS: Home he is taking Lortab, aspirin and Cardizem. ALLERGIES: Does not have any drug allergies. PHYSICAL EXAMINATION: Vital signs: Temperature is 97.8 degrees, pulse 94, respirations 20, blood pressure 130/84. General: Looks like the patient is in no acute distress. He does not appear to have very good health habits. Ear, nose and throat: He is missing most of his teeth. He can hear my spoken words and see near objects. Neck: No meningismus. Thorax: There is increased AP diameter of the chest. Lungs: Clear to auscultation. Cardiovascular: Regular heart rate. I did not hear a pericardial rub. Abdomen: Soft and nontender. Extremities: The patient's left leg is still slightly erythematous and swollen but according to the patient is much less so than it was a week ago when he was at [place]. Neurologic: The patient is awake. He can move his extremities. There is no tremor. His memory appeared to be a good as regarding his medical history. Thank you for the consult. cc: Indra Estevez MD
--- NOTE | 2017-03-18 18:23 | CONSULTATION ---
DATE OF CONSULTATION: 03/18/2017 CHIEF COMPLAINT: Pericardial effusion, possible infected. HISTORY OF PRESENT ILLNESS: This is a 56-year-old gentleman who has been admitted with cellulitis. It appears to arise from his left leg. Cultures have grown out methicillin-resistant staph and group A strep. He has developed a pericardial effusion with some discomfort and so there is some concern as to whether this represents a bacterial pericarditis. I have been asked to consider a pericardial window for diagnostic purposes. PAST MEDICAL HISTORY: His other medical problems include diabetes mellitus, atrial fibrillation/flutter, hypertension. MEDICATIONS: Include Cardizem, Lortab, aspirin. He has been on antibiotics recently for his infection. ALLERGIES: He denies any drug allergies. PAST SURGICAL HISTORY: Denies any previous surgery. SOCIAL HISTORY: He is . 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 He does smoke cigarettes daily. FAMILY HISTORY: Noncontributory. REVIEW OF SYSTEMS: As noted above. PHYSICAL EXAMINATION: Vital Signs: He is afebrile. Heart rate is 100, blood pressure 131/89. Neck: No cervical adenopathy. Lungs: Bilateral breath sounds. Some mild chest wall tenderness. Abdominal: Soft and nontender. No scars are noted. Skin: He does have spotty sores on both lower extremities with the worst ulceration on the left order desk caller medial calf. ASSESSMENT: 1. Lower extremity cellulitis with methicillin-resistant Staphylococcus and Streptococcus. 2. Pericardial effusion with some concern of bacterial pericarditis. PLAN: Will be a subxiphoid pericardiotomy on Tuesday the . I have discussed it with him. He understands and agrees to proceed. cc: Maciel Cuba MD
[2017-03-18] MEDS: SENOKOT PO SCH (21:53)
[2017-03-19] MEDS: HUMULIN R SUBQ SCH ×5 (01:53→20:46)
[2017-03-19] MEDS: MOTRIN PO SCH ×4 (02:47→20:46)
[2017-03-19] MEDS: LOVENOX SUBQ SCH (05:55)
[2017-03-19 07:05] LABS: HEMATOCRIT 35.9 % (42.0-52.0); HEMOGLOBIN 11.5 g/dL (14.0-18.0); MCH 30.6 PG (27-31); MCV 95.5 FL (81-99); MPV 11.1 FL (7.4-10.4); RBC 3.76 XMIL (4.7-6.1)
[2017-03-19 07:28] LABS: AGAP 14; BUN 13 mg/dL (8-22); CALCIUM 8.8 mg/dL (8.8-10.2); CHLORIDE 101 mmol/L (98-107); COSMO 286; POTASSIUM 3.7 mmol/L (3.5-5.1); SODIUM 142 mmol/L (136-145); TCO2 27 mmol/L (25-35)
[2017-03-19] MEDS: MIRALAX PO SCH ×2 (09:16→20:45)
[2017-03-19] MEDS: ASPIRIN EC PO SCH (09:16)
[2017-03-19] MEDS: CARDIZEM CD PO SCH (09:16)
[2017-03-19] MEDS: COLCRYS PO SCH ×2 (09:17→20:47)
[2017-03-19] MEDS: CULTURELLE PO SCH (09:17)
[2017-03-19] MEDS: DILAUDID IV PRN ×3 (09:21→20:47)
[2017-03-19] MEDS: VANCOMYCIN 2 GM in NS 500 ML IV SCH (10:30)
--- NOTE | 2017-03-19 14:05 | PROGRESS NOTE ---
DATE: 03/19/2017 SUBJECTIVE: The patient is sitting at the edge of the bed. He has no complaints. No acute events noted overnight. OBJECTIVE: Vital Signs: Temperature 98.5 degrees, blood pressure 138/98, heart rate 81, respirations 18, O2 saturations 96% on room air. General: This is an elderly male sitting at the edge of the bed in no acute distress. Head: Normocephalic, atraumatic. Heart: S1, S2. Normal. Regular rate. Lungs: Clear to auscultation bilaterally. No wheezing. No rales. No rhonchi. Abdomen: Positive bowel sounds. Soft, nontender, nondistended. Extremities: Decreased erythema on the left lower extremity eschar. Neurologic: The patient is alert and oriented x3. LABS: White blood cell count 5.8, hemoglobin 11, hematocrit 35, platelets 198. Sodium 142, potassium 3.7, chloride 101, CO2 27, BUN 13, creatinine 0.8, glucose 140. ASSESSMENT AND PLAN: 1. Acute pericarditis. Improved. Continue on colchicine and ibuprofen. 2. Pericardial effusion. The patient is scheduled to undergo a pericardiotomy on Tuesday. 3. Left lower extremity cellulitis with eschar. Improved. Continue on antibiotic therapy. 4. Atrial fibrillation. The patient is rate controlled. Continue on Cardizem. 5. Diabetes mellitus type 2. Continue on sliding scale insulin. 6. Deep vein thrombosis prophylaxis. Continue on Lovenox. cc: Umu Fernández MD
--- NOTE | 2017-03-19 14:23 | PROGRESS NOTE ---
DATE: 03/19/2017 SUBJECTIVE: The patient has noted complaints overnight. OBJECTIVE: Vital Signs: He is afebrile. Vital signs are stable. General: He is alert and oriented x4. No acute distress. CV: Regular rate and rhythm. Respiratory: No work of breathing. LABORATORY: White blood cell count 5000. ASSESSMENT/PLAN: A 56-year-old male with possible infected pericardial effusion. He is on antibiotics and a pericardial window is planned for Tuesday with Dr. Cuba. cc: Braeden Medrano MD
[2017-03-19] MEDS: SENOKOT PO SCH (20:45)
[2017-03-20] MEDS: VANCOMYCIN 2 GM in NS 500 ML IV SCH ×2 (00:16→11:27)
[2017-03-20] MEDS: DILAUDID IV PRN ×6 (00:18→20:52)
[2017-03-20] MEDS: MOTRIN PO SCH ×5 (03:20→20:51)
[2017-03-20] MEDS: LOVENOX SUBQ SCH (06:23)
[2017-03-20] MEDS: HUMULIN R SUBQ SCH ×3 (06:26→16:48)
[2017-03-20] MEDS: MIRALAX PO SCH ×2 (08:51→20:54)
[2017-03-20] MEDS: CULTURELLE PO SCH (08:51)
[2017-03-20] MEDS: ASPIRIN EC PO SCH (08:51)
[2017-03-20] MEDS: COLCRYS PO SCH ×2 (08:51→20:51)
[2017-03-20] MEDS: CARDIZEM CD PO SCH (08:51)
[2017-03-20] MEDS: SENOKOT PO SCH (20:54)
[2017-03-21] MEDS: VANCOMYCIN 2 GM in NS 500 ML IV SCH ×2 (00:07→11:38)
[2017-03-21] MEDS: DILAUDID IV PRN ×6 (00:14→23:01)
[2017-03-21] MEDS: HUMULIN R SUBQ SCH ×5 (00:18→22:34)
[2017-03-21] MEDS: MOTRIN PO SCH ×4 (01:38→20:35)
--- NOTE | 2017-03-21 03:49 | PROGRESS NOTE ---
DATE: 03/20/2017 SUBJECTIVE: The patient is resting comfortably in bed. He has no complaints. OBJECTIVE: Vital Signs: Temperature 97 degrees, blood pressure 148/92, heart rate 99, respirations 20, O2 saturations 95% on room air. General: This is an elderly male lying in bed in no acute distress. Head: Normocephalic, atraumatic. Heart: S1, S2. Normal. No murmur. Abdomen: Positive bowel sounds. Soft, nontender, nondistended. Extremities: No edema. No cyanosis. Decreased erythema in the left lower extremity, the eschar appears to be stable. Neuro: The patient is alert and oriented x3. LABS: None. ASSESSMENT AND PLAN: 1. Acute pericarditis. Improved. Continue on the current regimen. 2. Pericardial effusion. The patient is scheduled to undergo a pericardiotomy on Tuesday. 3. Left lower extremity cellulitis with eschar. Improved. Continue on IV antibiotic therapy. 4. Atrial fibrillation. The patient is rate controlled. Continue on Cardizem. 5. Diabetes mellitus type 2. Continue on sliding scale insulin. 6. Deep vein thrombosis prophylaxis. Will hold the Lovenox today. cc: Umu Fernández MD MTDD
[2017-03-21 07:57] LABS: AGAP 10; BUN 11 mg/dL (8-22); CALCIUM 9.3 mg/dL (8.8-10.2); CHLORIDE 101 mmol/L (98-107); COSMO 280; POTASSIUM 4.2 mmol/L (3.5-5.1); SODIUM 141 mmol/L (136-145); TCO2 30 mmol/L (25-35)
[2017-03-21] MEDS ORDERED: DIPRIVAN 1% ONE (07:59)
[2017-03-21] MEDS ORDERED: XYLOCAINE-MPF 2% ONE (07:59)
[2017-03-21] MEDS ORDERED: QUELICIN (DOSE) ONE (08:01)
[2017-03-21] MEDS ORDERED: ZEMURON ONE (08:02)
[2017-03-21 08:06] LABS: HEMATOCRIT 41.7 % (42.0-52.0); HEMOGLOBIN 13.1 g/dL (14.0-18.0); MCH 29.7 PG (27-31); MCHC 31.4 g/dL (33-37); MCV 94.6 FL (81-99); MPV 10.3 FL (7.4-10.4); RBC 4.41 XMIL (4.7-6.1)
[2017-03-21] MEDS ORDERED: VERSED ONE (09:17)
[2017-03-21] MEDS ORDERED: SENSORCAINE 0.25%/EPI 1:200,000 ONE (09:20)
[2017-03-21] MEDS ORDERED: FENTANYL ONE (10:00)
[2017-03-21] MEDS ORDERED: ROBINUL ONE (10:20)
[2017-03-21] MEDS ORDERED: NEOSTIGMINE ONE (10:26)
[2017-03-21] MEDS ORDERED: LABETALOL ONE (10:27)
[2017-03-21] MEDS ORDERED: NORCO-5 PO PRN (11:02)
--- NOTE | 2017-03-21 11:26 | ECHO REPORT ---
ORDER DATE: 03/17/2017 INDICATION: Limited echo to evaluate pericardial effusion. FINDINGS: This is a limited study with no Doppler evaluation of the valves. 1. The left ventricle appears to show normal LV systolic function. The estimated EF is greater than 55%. Normal wall motion. 2. No mitral valve prolapse. Aortic valve appears to open well. 3. Normal RV size and systolic function. 4. There appears to be a moderate-size circumferential pericardial effusion. Maximum dimension was measured at 2 cm which does appear to be smaller than the previous measured pericardial effusion on 03/15/2017. There does not appear to be physiologic evidence for tamponade. cc: MD Benny Mo MD
[2017-03-21] MEDS: ASPIRIN EC PO SCH (11:28)
[2017-03-21] MEDS: CARDIZEM CD PO SCH (11:28)
[2017-03-21] MEDS: MIRALAX PO SCH ×2 (11:29→20:36)
[2017-03-21] MEDS: COLCRYS PO SCH ×2 (11:29→20:35)
[2017-03-21] MEDS: CULTURELLE PO SCH (11:29)
--- NOTE | 2017-03-21 15:29 | OPERATIVE NOTE ---
PROCEDURE DATE: 03/21/2017 PROCEDURE: Subxiphoid pericardiotomy with pericardial biopsy. SURGEON: Maciel Cuba MD MARKING CLERK: Frederick De La Rosa MD, who assisted in exposure. DESCRIPTION OF PROCEDURE: Satisfactory general endotracheal anesthesia achieved, the chest and upper abdomen were prepped and draped in a sterile fashion. We anesthetized the skin with 0.25 Marcaine with epinephrine vertically from just above the xiphoid to the mid epigastrium. We incised the skin, and carried our incision through the subcutaneous tissue. We incised the fascia of the epigastrium. We then were able to place a retractor underneath the xiphoid. We then bluntly dissected just below the xiphoid until we reached the pericardium. We placed a Mistry retractor under the xiphoid. We placed a narrow ribbon retractor in the wound and then exposed the pericardium. We used electrocautery to go through the diaphragm and then incised the pericardium with a knife. After entering the pericardial sac, fluid did come forth and we cultured the fluid for aerobic and anaerobic cultures. I then further opened the pericardium, there was not that much fluid in there the fluid was rather serous appearing and it was not purulent appearing. The pericardium, however, did have some inflammatory process within it and did have a little bit of exudate present. We did excise some of the pericardium for biopsy. We did place a Gumaro drain into the pericardium to be certain that it stayed evacuated. We brought it out the inferior aspect of the wound. We then proceeded to close the fascia with 0 Polysorb [id number] stitches. We closed the subcutaneous tissue with 3-0 Polysorb simple stitches. We closed the skin with a 4-0 Polysorb subcuticular stitch. We used a 3-0 nylon to secure the drain at the skin level. Sterile dressings were applied. He tolerated it well. ESTIMATED BLOOD LOSS: Less than 5 mL. DISPOSITION: He was sent to the recovery room in satisfactory condition. cc: MD Benny Pena MD Leroy F. Harris, MD
--- NOTE | 2017-03-21 16:54 | PROGRESS NOTE ---
DATE: 03/21/2017 SUBJECTIVE: The patient has no focal complaints. OBJECTIVE: Vital Signs: Blood pressure 126/84, heart rate 91, respiratory rate of 19, temperature 98.2 degrees. Cardiovascular: Regular rate and rhythm. Pulmonary: Bilateral breath sounds. Clear to auscultation. Gastrointestinal: Abdomen soft, nontender, nondistended. Bowel sounds are positive. LABORATORY DATA: White count 6, hemoglobin and hematocrit 13 and 31. Platelets 392,000. CMP was normal. PROBLEM LIST: 1. Pericarditis with moderate to large pericardial effusion. He is on ibuprofen and colchicine. 2. Pericardial effusion status post pericardiotomy, today. Seems to be doing okay. 3. Lower extremity cellulitis. Improved. 4. Atrial fibrillation rate controlled. He is not currently on anticoagulation because of the pericarditis. 5. Type 2 diabetes. Controlled. DISPOSITION: Pending resolution after his pericardial procedure. cc: Kirill Erickson MD
--- NOTE | 2017-03-21 17:27 | PROGRESS NOTE ---
DATE: 03/21/2017 SUBJECTIVE: The patient now status post pericardial drainage and window by Dr. Cuba. He denies any dyspnea. He has some soreness at the site of his procedure. OBJECTIVE: Vital signs: Blood pressure 126/84, heart rate 91 and regular. Neck: There is no significant jugular venous distention. Chest: Clear to auscultation. Cardiac exam: A regular rate and rhythm without appreciable murmur or gallop. Extremities: There is there is no evidence of edema. Left lower extremity cellulitis is dramatically improved over the course of his hospital stay. LABORATORY DATA: Includes a white blood cell count 6.78. Cultures of pericardial fluid pending. Interestingly, Gram stain of pericardial fluid reports 1+ gram-positive cocci. IMPRESSION: 1. Acute pericarditis. Viral etiology initially suspected. However patient's gradual clinical improvement with treatment with ibuprofen and colchicine may as well have been related to intravenous vancomycin. Bacterial etiology could not be excluded and interestingly, pericardial fluid Gram stain demonstrates gram-positive cocci. Bacterial pericarditis is suggested although it would seem unusual for patient not to have appeared toxic. 2. Left lower extremity cellulitis with Staph aureus methicillin-resistant and Strep pyogenes. This is improving clinically with treatment. 3. Chronic atrial arrhythmias. 4. Hypertension. 5. Recurrent issues with noncompliance. RECOMMENDATIONS: 1. Continue long-acting diltiazem for rate control. 2. Continue ibuprofen and colchicine to help with pericarditis. 3. Continue parental antibiotics with vancomycin. 4. Appreciate help from hospitalist service, infectious disease and surgical services. cc: Benny Last MD
--- NOTE | 2017-03-21 18:48 | PROGRESS NOTE ---
DATE: 03/21/2017 PRESENT ILLNESS: The patient is status post pericardiotomy with pericardial biopsy. MEDICATIONS: The patient is receiving vancomycin. PHYSICAL EXAMINATION: Vital Signs: Temperature is 98 degrees, pulse 91, respirations 14, blood pressure 126/84. General: The is awake. He is having some pain but he is in no acute distress. Thorax: The dressing is intact. A tube is coming from the chest. Lungs: Clear to auscultation. Cardiovascular: Regular heart rate. Abdomen: Soft and nontender. Legs: There are multiple bruises and scratches and wounds on the legs. The 1 that was the worst on the left leg has almost completely healed and the leg is no more swollen. LAB AND X-RAY: The patient's CBC today showed a white count of 6780, hemoglobin 13.1, and platelet count 392,000. Creatinine 0.9. GFR is greater than 60. Blood and urine cultures are negative thus far. There are 3 specimens labeled abdomen but I assume that they are coming from the patient's chest because of the surgery he had today. In any event, 3 of the specimens are for culture which is pending. There is 1 of the specimens for Gram stains and it showed gram positive cocci. ASSESSMENT AND PLAN: Based on the Gram stain finding and Dr. Cuba's operative note where he said that there were some areas of purulence, it appears that the patient has a pericardial infection. The plan is to continue vancomycin pending results of the culture. COMORBIDITY: Include he has diabetes mellitus, he smokes cigarettes and he drinks alcoholic beverages. 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 cc: Indra Estevez MD
[2017-03-21] MEDS: NORCO-7.5 PO PRN (20:34)
[2017-03-21] MEDS: SENOKOT PO SCH (20:35)
[2017-03-21] MEDS: ATIVAN IV PRN (23:00)
[2017-03-22] MEDS: VANCOMYCIN 2 GM in NS 500 ML IV SCH ×3 (00:33→23:38)
[2017-03-22] MEDS: MOTRIN PO SCH ×4 (02:57→20:19)
[2017-03-22] MEDS: DILAUDID IV PRN ×7 (02:57→23:38)
[2017-03-22] MEDS: HUMULIN R SUBQ SCH ×3 (06:41→16:26)
[2017-03-22 06:49] LABS: HEMATOCRIT 40.2 % (42.0-52.0); HEMOGLOBIN 12.6 g/dL (14.0-18.0); MCH 29.7 PG (27-31); MCHC 31.3 g/dL (33-37); MCV 94.8 FL (81-99); RBC 4.24 XMIL (4.7-6.1)
[2017-03-22 07:06] LABS: AGAP 10; BUN 14 mg/dL (8-22); CALCIUM 8.9 mg/dL (8.8-10.2); CHLORIDE 101 mmol/L (98-107); COSMO 284; POTASSIUM 4.4 mmol/L (3.5-5.1); SODIUM 142 mmol/L (136-145); TCO2 31 mmol/L (25-35)
[2017-03-22] MEDS: CARDIZEM CD PO SCH (08:17)
[2017-03-22] MEDS: ASPIRIN EC PO SCH (08:17)
[2017-03-22] MEDS: CULTURELLE PO SCH (08:17)
[2017-03-22] MEDS: MIRALAX PO SCH ×2 (08:17→20:20)
[2017-03-22] MEDS: COLCRYS PO SCH ×2 (08:18→20:20)
[2017-03-22] MEDS: NORCO-7.5 PO PRN ×3 (08:23→20:28)
--- NOTE | 2017-03-22 14:05 | PROGRESS NOTE ---
DATE: 03/22/2017 SUBJECTIVE: Patient denies any chest discomfort or dyspnea. He has some soreness at the site of his pericardial drain. Overall he is feeling considerably better. OBJECTIVE: Vital Signs: Blood pressure 137/90. Heart rate 75 and regular. Temperature 97.8 degrees. Neck: There is no significant jugular venous distention. Chest: Clear to auscultation. Cardiac Exam: Reveals a regular rate and rhythm without appreciable murmur, rub, or gallop. There is no evidence of peripheral edema. LABORATORY DATA: Includes a white blood cell count 6.4. BUN 14, creatinine 0.9. IMPRESSION: 1. Acute pericarditis. Viral etiology initially suspected. However patient's presentation makes it very difficult to exclude bacterial pericarditis and gram-positive cocci reported on pericardial fluid. Cultures negative thus far. Prudence dictates managing as bacterial pericarditis. 2. Left lower extremity cellulitis with Staphylococcus aureus methicillin-resistant and Strep pyogenes. This has improved dramatically with treatment. 3. Chronic atrial arrhythmias. Patient currently in atrial fibrillation with controlled rate. 4. Hypertension. 5. Recurrent issues with noncompliance in the past. RECOMMENDATIONS: 1. Continue current cardiovascular regimen with diltiazem for rate control. 2. Continue ibuprofen, colchicine to reduce pericardial inflammatory response. 3. Continue parental antibiotics with vancomycin and make arrangements for outpatient therapy soon. cc: Benny Last MD
--- NOTE | 2017-03-22 14:18 | PROGRESS NOTE ---
DATE: 03/22/2017 PRESENT ILLNESS: The patient is status post pericardotomy with pericardial biopsy. The patient has been diagnosed as having purulent pericarditis specifically with gram positive cocci. MEDICATIONS: The patient is on vancomycin, this is day 1 of treatment following the patient's surgery. PHYSICAL EXAMINATION: Vital Signs: Temperature is 97.8 degrees, pulse 75, respirations 18, blood pressure 137/90. General: This is a somewhat ill-appearing, middle-aged male. He is in no acute distress. Lungs: Clear to auscultation. Cardiovascular: Regular heart rate. Chest: The patient's incision has a dressing on it. The dressing is intact. Abdomen: Soft and nontender. Extremities: The patient's right arm has a PICC in it, the site is not erythematous or swollen. The patient's left leg has a lesion which is improving and the leg is much smaller. LAB AND X-RAY: The Gram stain has been reviewed from the material taken at surgery and gram positive cocci were seen. The patient's CBC shows a white count of 6400, hemoglobin 12.6, and platelet count 371,000. Creatinine 0.9. GFR is greater than 60. There is no new radiographic study. ASSESSMENT AND PLAN: The patient has bacterial pericarditis. The plan is to treat with vancomycin. Most likely, the patient's pericardial infection came from a severe infection on his leg which most likely hematogenously involves the pericardium. The plan is to treat the patient with IV vancomycin for anywhere from 2-4 weeks. COMORBIDITIES: Include diabetes mellitus, cigarette smoking, alcohol consumption. 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 cc: Indra Estevez MD
--- NOTE | 2017-03-22 15:22 | Diag Imaging Result Doc PS360 ---
EXAM: CHEST-PORTABLE INDICATION: dyspnea TECHNIQUE: One view COMPARISON: 03/15/2017 FINDINGS: Right PICC line is stable. The lungs are grossly clear. There is no discrete pleural fluid collection or pneumothorax. Mild pulmonary venous congestion appears to have improved slightly. There is stable cardiomegaly. IMPRESSION: Slight improvement of the mild pulmonary venous congestion. Stable chest, otherwise. Electronically signed by Hemant Manning 03/22/2017 3:19 PM
[2017-03-22] MEDS: SENOKOT PO SCH (20:21)
[2017-03-22] MEDS: ATIVAN IV PRN (20:21)
[2017-03-23] MEDS: HUMULIN R SUBQ SCH ×4 (00:45→16:59)
[2017-03-23] MEDS: MOTRIN PO SCH ×4 (02:41→20:34)
[2017-03-23] MEDS: NORCO-7.5 PO PRN ×3 (02:41→15:21)
[2017-03-23] MEDS: DILAUDID IV PRN ×6 (05:05→23:41)
[2017-03-23 06:50] LABS: HEMATOCRIT 39.2 % (42.0-52.0); HEMOGLOBIN 12.3 g/dL (14.0-18.0); MCH 29.9 PG (27-31); MCHC 31.4 g/dL (33-37); MCV 95.1 FL (81-99); RBC 4.12 XMIL (4.7-6.1)
[2017-03-23 07:01] LABS: AGAP 8; BUN 14 mg/dL (8-22); CALCIUM 8.9 mg/dL (8.8-10.2); CHLORIDE 101 mmol/L (98-107); COSMO 277; POTASSIUM 4.2 mmol/L (3.5-5.1); SODIUM 139 mmol/L (136-145); TCO2 30 mmol/L (25-35)
[2017-03-23] MEDS: ASPIRIN EC PO SCH (09:05)
[2017-03-23] MEDS: CULTURELLE PO SCH (09:05)
[2017-03-23] MEDS: COLCRYS PO SCH ×2 (09:05→20:33)
[2017-03-23] MEDS: CARDIZEM CD PO SCH (09:05)
[2017-03-23] MEDS: MIRALAX PO SCH ×2 (09:10→20:32)
[2017-03-23] MEDS: VANCOMYCIN 2 GM in NS 500 ML IV SCH (14:29)
--- NOTE | 2017-03-23 14:45 | PROGRESS NOTE ---
DATE: 03/23/2017 SUBJECTIVE: Patient complaining of chest pain, relieved from admission. He is still having some swelling in his legs bilaterally. A little bit worse on the left than the right. Leg pain about 2/10, chest pain about 7/10 mostly with exertion. OBJECTIVE: Vital Signs: Blood pressure 123/98, respiratory rate of 23, heart rate 72, 96% on room air. Cardiovascular: Regular rate and rhythm. Pulmonary: Bilateral breath sounds. Occasional rales. GI: Was soft, nontender, nondistended. Bowel sounds are positive. Extremities: No clubbing or cyanosis. He had probably 1+ pitting edema bilaterally. Skin Examination: He had healing cellulitic changes on his left lower extremity. LABORATORY DATA: White count 5.8, CRP is 18, glucose 78. CMP looked good, basic metabolic. ASSESSMENT: This 56-year-old male presenting with cellulitis, atrial fibrillation with rapid ventricular response and pericarditis acutely, unclear at this point if it is related to methicillin resistant Staph aureus infection extending from his skin. 1. Acute pericarditis he is on ibuprofen. He is on colchicine. He has had a pericardial window. His CRP inflammatory markers have actually improved significantly since admission, so I think he is clinically improved. Likely will remove the drain tomorrow and we will follow. 2. Methicillin resistant Staph aureus cellulitis. He is on vancomycin. We will continue to manage the plan. I think is for IV antibiotics at home for the next 2-4 weeks. 3. Atrial fibrillation. Appears to be rate controlled. His CHADS-VASc score is 2, based on hypertension and diabetes, but at this point, he is not stable for anticoagulation with his recent surgery. Ultimate recommendations per cardiology service. 4. Diabetes. Appears to be overall well controlled. We will screen for lipids and follow. DISPOSITION: We are evaluating for home IV therapy. It will be difficult because of his lack of insurance but we are working on home IV therapy versus outpatient therapy. cc: Kirill Erickson MD
--- NOTE | 2017-03-23 18:16 | PROGRESS NOTE ---
DATE: 03/23/2017 PRESENT ILLNESS: The patient is status post pericardotomy with pericardial biopsy. The patient has purulent pericarditis with gram positive cocci. Unfortunately the organisms are not growing. MEDICATIONS: This is the 2nd day of treatment following the patient's surgery. PHYSICAL EXAMINATION: Vital Signs: Temperature is 97.9 degrees, pulse 90, respiration is 18, blood pressure 130/92. General: This is an ill-appearing, middle-aged male who is in no acute distress. Lungs: Clear to auscultation. Cardiovascular: Heart rate is regular. Abdomen: Soft and nontender. Integument: Patient has numerous excoriated areas. Chest: Patient's incision has a dressing over it. The dressing is intact. A drain is present as well. LAB AND X-RAY: The cultures from surgery remain negative. The Gram stain of one of the cultures taken shows gram positive cocci. Urine culture is negative. Creatinine 0.9. GFR is greater than 60. CBC shows a white count of 5800, hemoglobin 12.3, and platelet count 317,000. ASSESSMENT AND PLAN: The patient has purulent pericarditis. The plan is to treat him with vancomycin for a total of 4 weeks following surgery. COMORBIDITIES: Include diabetes mellitus, cigarette smoking, alcohol consumption. 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 cc: Indra Estevez MD
--- NOTE | 2017-03-23 18:49 | PROGRESS NOTE ---
DATE: 03/23/2017 SUBJECTIVE: Patient continues without chest discomfort or dyspnea. He has some soreness at the site of his pericardial drain tube. OBJECTIVE: Vital Signs: Blood pressure 130/92, heart rate 90 and regular. Oxygen saturation 98% on room air. Chest: Clear to auscultation. Cardiac: A regular rate and rhythm without appreciable murmur or gallop. Extremities: Without edema. LABORATORY: Microbiology studies report 1+ gram-positive cocci and pericardial fluid. However, cultures are negative to date. IMPRESSION: 1. Acute pericarditis. 2. Left lower extremity cellulitis with Staph aureus, methicillin-resistant and Strep pyogenes which have improved with antibiotic treatment. 3. Chronic atrial arrhythmias. Patient remains in atrial fibrillation with controlled rate. 4. Hypertension. 5. Current issues with noncompliance in the past, primarily related to financial limitations. RECOMMENDATIONS: 1. Continue diltiazem. 2. Continue ibuprofen and colchicine. 3. Pericardial drain to be removed soon. 4. Antibiotic therapy per Dr. Estevez. cc: Benny Last MD
[2017-03-23] MEDS: SENOKOT PO SCH (20:33)
[2017-03-23] MEDS: ATIVAN IV PRN (20:36)
[2017-03-24] MEDS: NORCO-7.5 PO PRN ×2 (02:33→09:09)
[2017-03-24] MEDS: MOTRIN PO SCH ×3 (02:33→16:08)
[2017-03-24] MEDS: ATIVAN IV PRN ×3 (02:34→12:43)
[2017-03-24] MEDS: VANCOMYCIN 2 GM in NS 500 ML IV SCH ×2 (03:37→03:38)
[2017-03-24] MEDS: HUMULIN R SUBQ SCH ×4 (03:39→16:09)
[2017-03-24] MEDS: DILAUDID IV PRN ×2 (04:28→12:43)
[2017-03-24] MEDS: BACTROBAN OINTMENT TOP SCH ×2 (04:29→09:11)
[2017-03-24 06:45] LABS: HEMOGLOBIN 12.6 g/dL (14.0-18.0); MCH 29.9 PG (27-31); MCHC 31.5 g/dL (33-37); MCV 94.8 FL (81-99); MPV 10.2 FL (7.4-10.4); RBC 4.22 XMIL (4.7-6.1)
[2017-03-24 07:02] LABS: AGAP 13; BUN 17 mg/dL (8-22); CALCIUM 8.9 mg/dL (8.8-10.2); CHLORIDE 101 mmol/L (98-107); COSMO 285; POTASSIUM 3.7 mmol/L (3.5-5.1); SODIUM 141 mmol/L (136-145); TCO2 27 mmol/L (25-35)
[2017-03-24 07:04] LABS: HDL 30 mg/dL (35-55); LDL 68 mg/dL; TRIGLYCERIDES 210 mg/dL (39-160); VLDL 42 mg/dL
--- NOTE | 2017-03-24 08:45 | PROGRESS NOTE ---
DATE: 03/24/2017 PRESENT ILLNESS: The patient is status post pericardiotomy with biopsy of the pericardium. MEDICATIONS: The patient is receiving vancomycin. This is day 3 of treatment following surgery. PHYSICAL EXAMINATION: Vital Signs: Temperature is 98.2 degrees, pulse 91 respirations are 20, blood pressure 129/98. Generally, this is a somewhat ill-appearing, middle-aged male. He is in no acute distress at this time. Lungs clear to auscultation. Cardiovascular: Regular heart rate. Abdomen is soft and nontender. Thorax: The patient has a dressing over the site where the biopsy was obtained. The dressing is intact. There is no surrounding erythema. Integument: Patient has multiple excoriated areas. LABORATORY DATA AND X-RAY: There is no new x-ray today. The patient's CBC shows a white count of 6170, hemoglobin 12.6, and platelet count 315,000. Creatinine is 0.9. GFR is greater than 60. The pericardial fluid now is growing a gram-positive coccus the identity of which is pending. ASSESSMENT AND PLAN: The patient has purulent pericarditis. The plan is to treat him with vancomycin for a total of 4 weeks following his surgery. Once the gram-positive coccus is identified, we may change the patient to another antibiotic. The patient's comorbidities include diabetes mellitus, cigarette smoking, alcohol consumption. 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 cc: Indra Estevez MD
[2017-03-24] MEDS: COLCRYS PO SCH (09:10)
[2017-03-24] MEDS: CULTURELLE PO SCH (09:10)
[2017-03-24] MEDS: CARDIZEM CD PO SCH (09:11)
[2017-03-24] MEDS: ASPIRIN EC PO SCH (09:11)
[2017-03-24] MEDS: MIRALAX PO SCH (09:11)
[2017-03-24] MEDS ORDERED: VANCOMYCIN 1.5 GM in NS 250 ML IV SCH (12:00)
[2017-03-24 15:07] VITALS: BP 113/85
--- NOTE | 2017-03-24 15:22 | PROGRESS NOTE ---
DATE: 03/24/2017 SUBJECTIVE: Patient continues without chest discomfort or dyspnea. Pericardial drain has been removed. OBJECTIVE: Vital Signs: Blood pressure 135/93, heart rate 99, oxygen saturation 97% on room air. There is no significant jugular venous distention. Chest: Clear to auscultation. Cardiac Exam: Reveals an irregular rate and rhythm without appreciable murmur or gallop. There is no evidence of peripheral edema. LABORATORY DATA: White blood cell count 6.17. Hematocrit 40.0. BUN 17, creatinine 0.9. IMPRESSION: 1. Acute pericarditis. Patient is status post pericardial drain with pericardial fluid reporting 1+ gram-positive cocci. Cultures negative thus far. 2. Recent left lower extremity cellulitis with staphylococcus aureus methicillin -resistant strep pyogenes which has improved dramatically with treatment. 3. Chronic atrial arrhythmias. Patient has been in atrial fibrillation with controlled rate. 4. Hypertension. 5. Issues with noncompliance in the past. Primarily related to financial limitations. RECOMMENDATIONS: 1. Continue current cardiovascular regimen with diltiazem for rate control. 2. Continue ibuprofen, Colchicine. 3. Prudence dictates management for purulent pericarditis and continued antibiotic therapy as directed by Dr. Estevez. 4. Reasonable for patient to be discharged to home soon. I will be happy to see him in followup approximately 2 weeks after discharge. cc: Benny Last MD MTDD
--- NOTE | 2017-03-25 03:52 | PROGRESS NOTE ---
DATE: 03/24/2017 ADDENDUM: The patient's culture from surgery grew Staphylococcus capitis. It is susceptible to oxacillin but I think we should still continue vancomycin because the patient did have methicillin- resistant Staph aureus and group A strep from a recent specimen of his leg and I am concerned that those 2 organisms or either 1 of them could have caused the patient's pericardial infection and for some reason just did not grow out well. I have asked the microbiology laboratory to send me the final results of the culture. I will be seeing the patient back in my office in 3 weeks. cc: Indra Estevez MD
--- NOTE | 2017-04-21 01:41 | DISCHARGE SUMMARY ---
ADMISSION DATE: 03/14/2017 DISCHARGE DATE: 03/24/2017 DISCHARGE DIAGNOSES: 1. Acute pericarditis. 2. Methicillin-resistant Staphylococcus aureus cellulitis. 3. Pericarditis, with positive MRSA culture. 4. Atrial fibrillation. 5. Type 2 diabetes. CONSULTATIONS: 1. Dr. Indra Estevez, Infectious Diseases. 2. Dr. Maciel Cuba, General Surgery. OPERATION: Pericardial window, subxiphoid pericardiotomy, with biopsy. PICC line placement. OTHER IMAGING STUDIES: Lower extremity venous study negative for DVT. Abdominal ultrasound: Mild left hydro. Chest/abdomen CT: Pericardial effusion, large. Echocardiogram: Moderate pericardial effusion. HISTORY AND HOSPITAL COURSE: Briefly, this is a 56-year-old male admitted on the with atrial fibrillation, shortness of breath, elevated white count. He also had evidence of a wound on his leg, atrial fibrillation. Echo looked okay. Was complaining of right-sided chest pain, elevated liver enzymes. He was hyponatremic. Acute kidney injury. He had a left lower extremity cellulitis. He was placed on clindamycin. The patient was evaluated and placed on IV antibiotics. Did not have any evidence of vegetation on the . He was felt to have an acute pericarditis. Cardiology was actually consulted. He was placed on ibuprofen and colchicine, in addition to his Cardizem. He was monitored for improvement. Echo done on the showed no vegetations. He was placed on oral Cardizem. He had moderate-sized pericardial effusion. On the , he was doing okay. Consultants came and evaluated the patient. On the , he was overall stabilizing. The plan was for pericardiotomy, which he underwent on the . Arrangements were made for home IV therapy. His micro grew out Staph capitis from his pericardial culture. Blood cultures were clear. Arrangements were made to discharge the patient on the . Dr. Estevez recommended vancomycin for at least another 3 weeks. Overall, he had greatly improved. DISCHARGE MEDICATIONS: Aspirin 81 daily, colchicine 0.6 b.i.d., Cardizem 240 daily, Constable p.r.n., Motrin p.r.n., Lactinex, Glucophage, and Prilosec 20 b.i.d., in addition to his initial plan that was to treat him with 4 weeks of vancomycin, and follow up with Dr. Estevez. DISCHARGE CONDITION: Stable. FOLLOWUP: Referred to Dr. Cuba and Dr. Estevez. cc: Kirill Erickson MD
== END 2017-03-24 16:44 | disposition home or self-care (01) ==
LOC: P.ED 00:28 → ICU 03:20 → SUATTDRO 03:20 → 3N 03-17 09:26
PROVIDERS: ATTEND Internal Medicine